=== PATIENT | female | born 1955 | race Caucasian/White ===

== ENCOUNTER 2017-01-30 01:35 | Inpatient (IN) | payer MEDICAID, MEDICARE, OTHER ==
[~2017-01-30] VITALS: Ht 170.2 cm; Wt 77.1 kg
[~2017-01-30 01:35] MED LIST: BENZ0.5T3 PO; FERR-58 PO; FLUO20CA36 PO; GABA-534 PO; HALO5TAB8 PO; NIFE30TA89 PO
--- NOTE | 2017-01-30 01:40 | NUR ---
PT BIB [facility] FOR GD AND DANGER TO SELF. PT IS ON A HOLD. PT WAS TAKEN TO ROOM #4. URINE SAMPLE OBTAINED AND SENT TO LAB.
[2017-01-30] MEDS ORDERED: OLANZAPINE 5 MG TABLET ONE (01:56)
--- NOTE | 2017-01-30 01:58 | NUR ---
MOTOR PATROL OPERATOR IS AT THE BEDSIDE FOR DRAW.
[2017-01-30] MEDS ORDERED: OLANZAPINE 5 MG TABLET PO ONE (02:00)
[2017-01-30 02:23] LABS: CANNABINOID, URINE NEGATIVE (NEGATIVE); PHENCYCLIDINE SCREEN,URINE NEGATIVE (NEGATIVE)
[2017-01-30 02:30] VITALS: BP 143/90
[2017-01-30 02:32] LABS: APPEARANCE,URINE CLEAR (CLEAR); BILIRUBIN,URINE 1+ (NEGATIVE); BLOOD, URINE NEGATIVE Ery/uL (NEGATIVE); COLOR,URINE YELLOW (YELLOW); KETONES,URINE TRACE (NEGATIVE); LEUKOCYTE ESTERASE ,URINE NEGATIVE (NEGATIVE); NITRITE, URINE NEGATIVE (NEGATIVE); PROTEIN,URINE 1+ mg/dl (NEGATIVE); UGLUCOSE NEGATIVE (NEGATIVE)
[2017-01-30 02:33] LABS: BASOPHILS % (AUTO) 0.6 % (0.0-2.0); EOSINOPHILS # (AUTO) 0.1 /CMM (0.0-0.7); EOSINOPHILS % (AUTO) 1.8 % (0.0-6.0); HEMATOCRIT 35 % (33-45); HEMOGLOBIN 11.4 g/dL (11.5-14.8); LYMPHOCYTES % (AUTO) 33.1 % (20.0-44.0); MEAN CORPUSCULAR HEMOGLOBIN 29 PG (26.0-33.0); MEAN CORPUSCULAR HGB CONC 33 g/dl (31.0-36.0); MEAN CORPUSCULAR VOLUME 89 fL (82-100); MONOCYTES # (AUTO) 0.6 /CMM (0.1-1.30); MONOCYTES % (AUTO) 10.2 % (2.0-12.0); NEUTROPHILS # (AUTO) 3.4 /CMM (1.8-8.9); NEUTROPHILS % (AUTO) 54.3 % (43.0-81.0); PLATELET COUNT (AUTO) 217 /CMM (150-450); RDW COEFFICIENT OF VARIATION 13.8 (11.5-15.0); RED BLOOD CELL COUNT(AUTO) 3.93 MIL/uL (4.0-5.2); WHITE BLOOD COUNT (AUTO) 6.2 K/uL (4.3-11.0)
[2017-01-30 02:41] LABS: ADD URINE CULTURE NO; BACTERIA,URINE Few /HPF (None Seen); RBC,URINE 0-2 /HPF (0-2); WBC,URINE 0-2 /HPF (0-3)
[2017-01-30 02:42] LABS: SQUAMOUS EPITHELIAL CELL,UR 0-2 /HPF (None Seen)
[2017-01-30 02:43] LABS: CALCIUM, SERUM 8.9 mg/dL (8.5-10.1); CARBON DIOXIDE 30 mmol/L (21-32); CHLORIDE 104 mmol/L (98-107); CREATININE 1.2 mg/dL (0.6-1.3); GFR 46 mL/min (>60); GLUCOSE 96 mg/dL (74-106); SODIUM SERUM 143 mmol/L (136-145); UREA NITROGEN, BLOOD 28 mg/dL (7-18)
[2017-01-30 02:48] LABS: ALANINE AMINOTRANSFERASE 18 U/L (12-78); ALBUMIN 3.7 g/dL (3.4-5.0); ALCOHOL, BLOOD < 3 mg/dL (0-0); ALKALINE PHOSPHATASE 86 U/L (46-116); ASPARTATE AMINOTRANSFERASE 18 U/L (15-37); BILIRUBIN,DIRECT 0.1 mg/dL (0.0-0.2); BILIRUBIN,TOTAL 0.3 mg/dL (0.2-1.0); TOTAL PROTEIN, SERUM 6.8 g/dL (6.4-8.2)
[2017-01-30 02:49] LABS: ACETAMINOPHEN 0 ug/ml (10-30); SALICYLATE 2.3 mg/dL (2.8-20.0); VALPROIC ACID 12 ug/mL (50-100)
[2017-01-30 03:15] VITALS: BP 143/90
--- NOTE | 2017-01-30 03:15 | NUR ---
[facility]PS NAILHEAD SETTER NOTES ADMITTED THIS 61 YEAR OLD FEMALE ON 5150 HOLD FOR DANGER TO SELF AND GRAVE DISABILITY. PER HOLD, PATIENT IS NON COMPLIANT, NOT SLEEPING AND EATING REGULARLY AND IS HEARING VOICES. UPON FACE TO FACE PATIENT IS ALERT AND ORIENTED X 4. ADMITS TO HEARING VOICES TELLING HIM TO GO LEAVE. VITAL SIGNS CHECKED AND RECORDED. AFEBRILE. ASSESSMENT OF BODY SYSTEMS COMPLETED. SKIN/ BODY CHECK DONE. SKIN IS CLEAR. PATIENT IS ADMITTED UNDER THE CARE OF DR. GARRIDO FOR PSYCH AND DR. JUAN JOSE LUNA FOR MEDICAL. PATIENT IS COOPERATIVE AND DISORGANIZED. DENIES SUICIDAL AND HOMICIDAL IDEATIONS. FOR MED RECON. WILL ENDORSE TO DAY SHIFT RN.
[2017-01-30] MEDS ORDERED: MAGNESIUM HYDROXIDE 30 ML UDC PO PRN (04:30)
[2017-01-30] MEDS ORDERED: MAG HYDROX/AL HYDROX/SIMETH 30 ML UDC PO PRN (04:30)
[2017-01-30 05:27] LABS: CHOLESTEROL 247 mg/dL (<200); HDL CHOLESTEROL 60 mg/dL (40-60); LDL 158 mg/dL (0-99); TRIGLYCERIDES 67 mg/dL (30-150)
[2017-01-30 08:00] VITALS: BP 144/71
[2017-01-30] MEDS: ACETAMINOPHEN 325 MG TABLET PO PRN ×3 (08:46→19:40)
[2017-01-30] MEDS ORDERED: CHLO10TA5 PO (10:18)
[2017-01-30] MEDS ORDERED: AMLO5TAB4 PO (10:18)
[2017-01-30] MEDS ORDERED: ATOR10TA PO (10:18)
[2017-01-30] MEDS ORDERED: DIVA250T PO (10:18)
[2017-01-30] MEDS ORDERED: LEVO75TA PO (10:18)
[2017-01-30] MEDS ORDERED: ALPR2TAB2 PO ×2 (10:18)
--- NOTE | 2017-01-30 10:20 | NUR ---
RECEIVED PT. ASLEEP IN BED, BREATHING IS EVEN AND UNLABORED. NO SIGN OF DISTRESS AND NO AGITATION NOTED. PT. TOLD THE TAX COMPLIANCE OFFICER WHAT ACTIVE MEDS SHE IS TAKING AT HOME AND HOME MEDS UPDATED.
[2017-01-30] MEDS ORDERED: chlorproMAZINE HCL 25 MG TABLET PO SCH (13:30)
[2017-01-30] MEDS: FLUOXETINE HCL 20 MG CAPSULE PO SCH (14:26)
[2017-01-30] MEDS: DIVALPROEX SODIUM 250 MG TABLET.DR PO SCH ×2 (14:26→16:45)
[2017-01-30 16:00] VITALS: BP 136/84
[2017-01-30 20:18] VITALS: BP 147/87
[2017-01-30] MEDS: OLANZAPINE 5 MG/TAB.RAPDIS PO SCH (21:33)
[2017-01-30] MEDS: TEMAZEPAM 7.5 MG CAPSULE PO PRN (21:51)
[2017-01-30] MEDS: LORAZEPAM 0.5 MG TABLET PO PRN (23:37)
[2017-01-31 07:07] LABS: BASOPHILS % (AUTO) 0.8 % (0.0-2.0); EOSINOPHILS # (AUTO) 0.3 /CMM (0.0-0.7); EOSINOPHILS % (AUTO) 4.8 % (0.0-6.0); HEMATOCRIT 36 % (33-45); HEMOGLOBIN 11.8 g/dL (11.5-14.8); LYMPHOCYTES # (AUTO) 2.7 /CMM (0.8-4.8); LYMPHOCYTES % (AUTO) 49.6 % (20.0-44.0); MEAN CORPUSCULAR HEMOGLOBIN 30 PG (26.0-33.0); MEAN CORPUSCULAR HGB CONC 33 g/dl (31.0-36.0); MEAN CORPUSCULAR VOLUME 90 fL (82-100); MONOCYTES # (AUTO) 0.4 /CMM (0.1-1.30); MONOCYTES % (AUTO) 8.1 % (2.0-12.0); NEUTROPHILS % (AUTO) 36.7 % (43.0-81.0); PLATELET COUNT (AUTO) 145 /CMM (150-450); RDW COEFFICIENT OF VARIATION 14.1 (11.5-15.0); RED BLOOD CELL COUNT(AUTO) 3.98 MIL/uL (4.0-5.2); WHITE BLOOD COUNT (AUTO) 5.4 K/uL (4.3-11.0)
[2017-01-31 08:00] VITALS: BP 130/79
[2017-01-31] MEDS: DIVALPROEX SODIUM 250 MG TABLET.DR PO SCH ×3 (08:03→17:27)
[2017-01-31] MEDS: AMLODIPINE BESYLATE 5 MG TABLET PO SCH (08:03)
[2017-01-31] MEDS: LEVOTHYROXINE SODIUM 75 MCG TABLET PO SCH (08:03)
[2017-01-31] MEDS: ATORVASTATIN 10 MG TABLET PO SCH (08:03)
[2017-01-31] MEDS: FLUOXETINE HCL 20 MG CAPSULE PO SCH (08:03)
[2017-01-31] MEDS: OLANZAPINE 5 MG/TAB.RAPDIS PO SCH ×2 (08:03→21:19)
[2017-01-31 08:19] LABS: ALBUMIN 3.1 g/dL (3.4-5.0); BILIRUBIN,TOTAL 0.3 mg/dL (0.2-1.0); CALCIUM, SERUM 8.2 mg/dL (8.5-10.1); TOTAL PROTEIN, SERUM 6.1 g/dL (6.4-8.2)
--- NOTE | 2017-01-31 09:08 | NUR ---
[id number]: NOTIFIED VIDEO TAPE TRANSFERRER ADRIAN JONES FOR LAB VALUES OF TODAY: NA= 146, K= 3.0, HUPEJLCZ=130, CALCIUM= 8.2, TOTAL PROTEIN= 6.1, ALBUMIN= 3.1, RBC= 3.98, PLT COUNT= 145, NEUT%= 36.7%. PENDING RETURN PHONE CALL
[2017-01-31] MEDS ORDERED: POTASSIUM CHLORIDE 20 MEQ TAB.PRT.SR PO ONE (10:00)
--- NOTE | 2017-01-31 10:19 | NUR ---
[id number]: RUSSELL JOENS ORDERED K-DUR 60 MEQ PO 1X.
[2017-01-31 16:00] VITALS: BP 110/76
--- NOTE | 2017-01-31 19:30 | NUR ---
GPS RN NOTE, RECEIVED PATIENT AWAKE AND IN BED, NO S/S OR COMPLAINTS OF PAIN AT THIS TIME. PATIENT IS DISPLAYING NO S/S OF APPARENT DISTRESS AT THIS TIME. PATIENT BREATHING IS UNLABORED WITH EQUAL RISE AND FALL OF THE CHEST. PATIENT IS ALERT AND ORIENTED X 2 ON ROOM AIR WITH A SPO2 OF 95%. PATIENT IS MED COMPLIANT, CALM, COOPERATIVE, AND NEEDS REORIENTATION. PATIENT DENIES SUICIDE IDEATIONS AND HOMICIDAL IDEATIONS AT THIS TIME. PATIENT ASSISTED WITH TURNING AND REPOSITIONING Q2HR AND PRN FOR COMFORT AND CIRCULATION. PATIENT HAS NO NEEDS AT THIS TIME. PATIENT EDUCATED ON THE USE OF THE CALL GONZALES. PATIENT BED SIDE RAILS ARE UP X2 FOR SAFETY, BED IS LOCKED AND LOW WILL CONTINUE TO MONITOR AND MAINTAIN SAFETY.
[2017-01-31 20:00] VITALS: BP 116/65
[2017-01-31] MEDS: TEMAZEPAM 7.5 MG CAPSULE PO PRN (21:20)
--- NOTE | 2017-01-31 21:20 | NUR ---
GPS RN NOTE, PATIENT HAS A COMPLAINT OF NOT BEING ABLE TO SLEEP AND [place] LIKE A SLEEPING AID AT THIS TIME. PATIENT VITAL SIGNS ARE STABLE. GAVE RESTORIL 7.5MG PO HS ORDERED. WILL REASSESS FOR INSOMNIA AND I WILL CONTINUE TO MONITOR THIS PATIENT.
[2017-01-31] MEDS: ACETAMINOPHEN 325 MG TABLET PO PRN (22:12)
--- NOTE | 2017-01-31 22:12 | NUR ---
GPS RN NOTE, PATIENT HAS A COMPLAINT OF RIGHT SHOULDER PAIN AT 5 OUT 10 ON THE PAIN SCALE AND WOULD LIKE MEDICATION AT THIS TIME. PATIENT VITAL SIGNS ARE STABLE. GAVE TYLENOL 650MG PO Q6HR PRN ORDERED. WILL REASSESS PAIN AND I WILL CONTINUE TO MONITOR THIS PATIENT.
--- NOTE | 2017-01-31 23:29 | NUR ---
GPS RN NOTE, PATIENT HAS A COMPLAINT OF CHRONIC RIGHT SHOULDER PAIN AT 7 OUT 10 ON THE PAIN SCALE. PAGED [facility] AND INFORMED GABINO SWAIN OF MY FINDINGS. GABINO SWAIN ORDER NORCO 5-325 1 TAB PO Q6HR PRN. ALL ORDERS NOTED AND CARRIED OUT WILL CONTINUE TO MONITOR THIS PATIENT.
[2017-02-01 07:40] LABS: BASOPHILS % (AUTO) 0.6 % (0.0-2.0); EOSINOPHILS # (AUTO) 0.3 /CMM (0.0-0.7); EOSINOPHILS % (AUTO) 4.3 % (0.0-6.0); HEMATOCRIT 35 % (33-45); HEMOGLOBIN 11.5 g/dL (11.5-14.8); LYMPHOCYTES # (AUTO) 2.6 /CMM (0.8-4.8); LYMPHOCYTES % (AUTO) 44.6 % (20.0-44.0); MEAN CORPUSCULAR HEMOGLOBIN 30 PG (26.0-33.0); MEAN CORPUSCULAR HGB CONC 33 g/dl (31.0-36.0); MEAN CORPUSCULAR VOLUME 89 fL (82-100); MONOCYTES # (AUTO) 0.4 /CMM (0.1-1.30); MONOCYTES % (AUTO) 6.4 % (2.0-12.0); NEUTROPHILS # (AUTO) 2.6 /CMM (1.8-8.9); NEUTROPHILS % (AUTO) 44.1 % (43.0-81.0); PLATELET COUNT (AUTO) 201 /CMM (150-450); RDW COEFFICIENT OF VARIATION 14.3 (11.5-15.0); RED BLOOD CELL COUNT(AUTO) 3.89 MIL/uL (4.0-5.2); WHITE BLOOD COUNT (AUTO) 5.9 K/uL (4.3-11.0)
[2017-02-01 07:58] LABS: CALCIUM, SERUM 8.1 mg/dL (8.5-10.1); POTASSIUM 3.9 mmol/L (3.5-5.1)
[2017-02-01 08:00] VITALS: BP 119/74
[2017-02-01] MEDS: DIVALPROEX SODIUM 250 MG TABLET.DR PO SCH ×3 (08:18→16:29)
[2017-02-01] MEDS: FLUOXETINE HCL 20 MG CAPSULE PO SCH (08:18)
[2017-02-01] MEDS: LEVOTHYROXINE SODIUM 75 MCG TABLET PO SCH (08:18)
[2017-02-01] MEDS: OLANZAPINE 5 MG/TAB.RAPDIS PO SCH ×2 (08:18→21:27)
[2017-02-01] MEDS: ATORVASTATIN 10 MG TABLET PO SCH (08:18)
[2017-02-01] MEDS: AMLODIPINE BESYLATE 5 MG TABLET PO SCH (08:19)
--- NOTE | 2017-02-01 10:53 | NUR ---
UR Update: face worker provided Farhan Daley ([phone]) pillowcase cutter for [facility] verbal updated clinical. face worker will follow-up. AUT# [id number]
--- NOTE | 2017-02-01 11:58 | NUR ---
Patient lives with a roommate at [address] [place] [address]. ([phone]). Patient wants to return home upon discharge. workers' compensation claims supervisor attempted to contact patients roommate Kimberly Campbell / . However, she was unavailable, social media content manager left her a voicemail with her contact information. workers' compensation claims supervisor will follow-up with MD, family and patient regarding appropriate discharge plan and will help form a safe and proper discharge. workers' compensation claims supervisor will provide patient with substance abuse and smoking cessation referrals upon discharge.
--- NOTE | 2017-02-01 15:35 | NUR ---
disc pad knockout worker spoke with patients roommate Kimberly Carpentera ([phone]) who stated that patient can return home when she is ready for discharge.
[2017-02-01 16:09] VITALS: BP 103/63
[2017-02-01] MEDS: HYDROCODONE/APAP 5/325MG 1 EACH TABLET PO PRN (17:40)
--- NOTE | 2017-02-01 17:40 | NUR ---
[id number]: GAVE NORCO 5/325 MG PO DUE TO GENERALIZED PAIN 05/12 UPON PT REQUEST AND WILL CONTINUE TO MONITOR FOR EFFECTIVENESS OF MEDICATION
[2017-02-01] MEDS: TEMAZEPAM 7.5 MG CAPSULE PO PRN (21:46)
--- NOTE | 2017-02-01 21:47 | NUR ---
GPS/RN NOTE: PATIENT UNABLE TO SLEEP, REQUESTED FOR SLEEPING PILL, TEMAZEPAM 7.5 MG CAP 1 PO GIVEN.
[2017-02-01 22:01] VITALS: BP 135/79
[2017-02-02] MEDS: HYDROCODONE/APAP 5/325MG 1 EACH TABLET PO PRN ×2 (02:10→12:50)
--- NOTE | 2017-02-02 02:11 | NUR ---
GPS/RN NOTE: C/O ACHY PAIN ON THE RIGHT SHOULDER, 6/10 ON PAIN SCALE, NORCO 5/325 MG TAB 1 PO GIVEN.
[2017-02-02 08:06] VITALS: BP 145/82
[2017-02-02] MEDS: DIVALPROEX SODIUM 250 MG TABLET.DR PO SCH ×3 (08:26→17:54)
[2017-02-02] MEDS: FLUOXETINE HCL 20 MG CAPSULE PO SCH (08:26)
[2017-02-02] MEDS: ATORVASTATIN 10 MG TABLET PO SCH (08:26)
[2017-02-02] MEDS: OLANZAPINE 5 MG/TAB.RAPDIS PO SCH ×2 (08:26→21:24)
[2017-02-02] MEDS: AMLODIPINE BESYLATE 5 MG TABLET PO SCH (08:26)
[2017-02-02] MEDS: LEVOTHYROXINE SODIUM 75 MCG TABLET PO SCH (08:27)
[2017-02-02] MEDS: LORAZEPAM 0.5 MG TABLET PO PRN (08:58)
--- NOTE | 2017-02-02 08:58 | NUR ---
ADMINISTER ATIVAN 0.5 MG PO PRN FOR ANXIETY, V/S TAKEN NZ=656/82, P-63, CONTINUED MONITORING.
--- NOTE | 2017-02-02 09:42 | NUR ---
I have reviewed the psychosocial assessment and I concur with the information provided. No changes are necessary. Ashley Aguilar, BREAK OFF WORKER [id number] Addendum: 02/02/17 at 0943 by ASHLEY CANTU Amended: Links added.
[2017-02-02] MEDS ORDERED: MUPIROCIN OINT 2% 22 GM TUBE SCH (10:00)
--- NOTE | 2017-02-02 10:40 | NUR ---
UR Update: day worker provided Farhan Daley ([phone]) renal case manager for [facility] verbal updated clinical. day worker will follow-up. AUT# [id number]
--- NOTE | 2017-02-02 12:50 | NUR ---
administered narco 5/325 mg po prn for chronic generalized pain 05/12, v/s take bp-123/71, p-73, continued monitoring.
--- NOTE | 2017-02-02 15:10 | NUR ---
UR update: barn worker spoke to Farhan Daley ([phone]) housing case manager for [facility] who confirmed approval through January, with the next review due on Saturday February 04, 2017. barn worker will follow-up. AUT# [id number]
[2017-02-02 16:00] VITALS: BP 136/75
[2017-02-02 20:23] VITALS: BP 143/97
[2017-02-02] MEDS: TEMAZEPAM 7.5 MG CAPSULE PO PRN (21:24)
--- NOTE | 2017-02-02 21:26 | NUR ---
GPS/RN NOTE: TEMAZEPAM 7.5 MG TAB 1 PO GIVEN
[2017-02-03 07:20] LABS: BASOPHILS % (AUTO) 0.9 % (0.0-2.0); EOSINOPHILS # (AUTO) 0.2 /CMM (0.0-0.7); EOSINOPHILS % (AUTO) 5.2 % (0.0-6.0); HEMATOCRIT 37 % (33-45); HEMOGLOBIN 12.4 g/dL (11.5-14.8); LYMPHOCYTES # (AUTO) 2.3 /CMM (0.8-4.8); LYMPHOCYTES % (AUTO) 49.6 % (20.0-44.0); MEAN CORPUSCULAR HEMOGLOBIN 30 PG (26.0-33.0); MEAN CORPUSCULAR HGB CONC 34 g/dl (31.0-36.0); MEAN CORPUSCULAR VOLUME 89 fL (82-100); MONOCYTES # (AUTO) 0.4 /CMM (0.1-1.30); MONOCYTES % (AUTO) 8.4 % (2.0-12.0); NEUTROPHILS # (AUTO) 1.7 /CMM (1.8-8.9); NEUTROPHILS % (AUTO) 35.9 % (43.0-81.0); PLATELET COUNT (AUTO) 198 /CMM (150-450); RDW COEFFICIENT OF VARIATION 14.2 (11.5-15.0); RED BLOOD CELL COUNT(AUTO) 4.13 MIL/uL (4.0-5.2); WHITE BLOOD COUNT (AUTO) 4.7 K/uL (4.3-11.0)
[2017-02-03 07:27] LABS: CALCIUM, SERUM 8.7 mg/dL (8.5-10.1); CREATININE 1.1 mg/dL (0.6-1.3); POTASSIUM 4.4 mmol/L (3.5-5.1)
[2017-02-03 07:43] LABS: THYROID STIMULATING HORMONE 2.138 uIU/mL (0.358-3.74)
[2017-02-03 08:00] VITALS: BP_SYST 119; BP_SYST 132; BP_DIAS 66; BP_DIAS 74
[2017-02-03] MEDS: DIVALPROEX SODIUM 250 MG TABLET.DR PO SCH ×3 (08:52→16:59)
[2017-02-03] MEDS: OLANZAPINE 5 MG/TAB.RAPDIS PO SCH ×2 (08:52→21:04)
[2017-02-03] MEDS: ATORVASTATIN 10 MG TABLET PO SCH (08:52)
[2017-02-03] MEDS: AMLODIPINE BESYLATE 5 MG TABLET PO SCH (08:53)
[2017-02-03] MEDS: FLUOXETINE HCL 20 MG CAPSULE PO SCH (08:53)
[2017-02-03] MEDS: LEVOTHYROXINE SODIUM 75 MCG TABLET PO SCH (08:53)
[2017-02-03 16:00] VITALS: BP 138/70
[2017-02-03] MEDS: HYDROCODONE/APAP 5/325MG 1 EACH TABLET PO PRN ×2 (17:18→23:32)
[2017-02-03 20:00] VITALS: BP 118/67
--- NOTE | 2017-02-03 21:16 | NUR ---
GPS RN NOTES PATIENT TOOK OLANZAPINE 7.5 MG. SUPPOSED TO WASTE 2.5 MG IN PIXIS BUT ACCIDENTALLY WENT TOO FAST AND WASTED 10MG INSTEAD.
[2017-02-03] MEDS: TEMAZEPAM 7.5 MG CAPSULE PO PRN (22:08)
--- NOTE | 2017-02-03 22:08 | NUR ---
GPS RN NOTES PATIENT UNABLE TO SLEEP. PRN RESTORIL 7.5 MG GIVEN PO AT 2208 PER PATIENT REQUEST FOR INSOMNIA.
--- NOTE | 2017-02-03 23:32 | NUR ---
GPS RN NOTES PATIENT COMPLAINING OF RIGHT SHOULDER PAIN AT 10/10 PAIN SCALE. PRN NORCO GIVEN PO AT 2332 PER PATIENT REQUEST FOR PAIN.
[2017-02-04] MEDS: LORAZEPAM 0.5 MG TABLET PO PRN (00:22)
--- NOTE | 2017-02-04 00:23 | NUR ---
GPS RN NOTES PATIENT STATES THAT SHE FEELS ANXIOUS. KEEPS ON ASKING FOR CRACKERS AND MILK. STILL UNABLE TO SLEEP DESPITE TAKING RESTORIL EARLIER. ATIVAN 0.5MG GIVEN PO AT 0022 PER PATIENT REQUEST.
[2017-02-04 08:00] VITALS: BP 109/51
[2017-02-04] MEDS: DIVALPROEX SODIUM 250 MG TABLET.DR PO SCH ×3 (08:15→16:31)
[2017-02-04] MEDS: OLANZAPINE 5 MG/TAB.RAPDIS PO SCH (08:15)
[2017-02-04] MEDS: FLUOXETINE HCL 20 MG CAPSULE PO SCH (08:15)
[2017-02-04] MEDS: LEVOTHYROXINE SODIUM 75 MCG TABLET PO SCH (08:15)
[2017-02-04] MEDS: ATORVASTATIN 10 MG TABLET PO SCH (08:15)
[2017-02-04] MEDS: AMLODIPINE BESYLATE 5 MG TABLET PO SCH (08:16)
--- NOTE | 2017-02-04 08:30 | NUR ---
RN-CO: DR Lamas, stamp redemption clerk for Dr. Patrick , ordered to discontinue hold and discharge patient. Kimberly Campbell , friend notified. Per Kimberly she will garbage pick up man the patient at 8:00 PM. Patient made aware.
--- NOTE | 2017-02-04 14:00 | NUR ---
RN-CO: Dr. Galvin seen and examined the patient and wrote a RX for the patient. Patient is aware of her discharge. She remain calm and cooperative to care. Denied suicidal and homicidal ideation as well as auditory and visual hallucination.
[2017-02-04 16:00] VITALS: BP 137/76
--- NOTE | 2017-02-04 16:33 | NUR ---
Patient will be discharged back home [address] [place] [address]. ([phone]) Patient's roommate/ was informed and will pick her up via private vehicle at 8:30pm. Patient and patient's roommate/ are agreeable with the discharge plan. At this time patient is calm and cooperative and denies suicidal and homicidal ideations. Patient provided patient with [facility] referral for follow-up appointment. telephone worker also provided patient with a referral to the [facility] department of mental health [address] [facility] [address]. Pt. will meet with psychiatrist Dr. Mattson to discuss medication overuse. Facilitated info to IDT team who are in agreement with discharge arrangement. The multidisciplinary exitcare form was done, printed, signed, and given to the patient.
--- NOTE | 2017-02-04 20:15 | NUR ---
GPS/RN-PATIENT DISCHARGED TO HOME IN STABLE CONDITION ACCOMPANIED BY SIGNIFICANT OTHER.NO VERBALIZATION OF SI/HI.HEALTH TEACHINGS GIVEN TO PATIENT AND PARTNER.ALL PERSONAL BELONGINS TAKEN HOME BY PATIENT.
== END 2017-02-04 20:15 | disposition home or self-care (01) | DRG 885 ==
LOC: ER 01:38 → GPS 02:52
PROVIDERS: ADMIT Psychiatry & Neurology Psychiatry; ATTEND Nurse Practitioner Acute Care
DX: F31.64 Bipolar disorder, current episode mixed, severe, with psychotic features (principal); E87.0 Hyperosmolality and hypernatremia; Z73.6 Limitation of activities due to disability; I10 Essential (primary) hypertension; D50.9 Iron deficiency anemia, unspecified; E87.6 Hypokalemia; E78.5 Hyperlipidemia, unspecified; E03.9 Hypothyroidism, unspecified; Z79.899 Other long term (current) drug therapy; Z91.14 Patient's other noncompliance with medication regimen
CPT/HCPCS: 36415; 80048-TC; 80053-TC; 80061-TC; 80076-TC; 80164-TC; 80305; 81000-TC; 84443-TC; 85025-TC; 87081-TC; A4606; G0480; G6039-TC; Z7610

== ENCOUNTER 2019-11-18 15:23 | Inpatient (IN) | payer MEDICARE, OTHER ==
[~2019-11-18] VITALS: Ht 170.2 cm; Wt 71.2 kg
[~2019-11-18 15:23] MED LIST changes: +ALPR2TAB2 PO; +AMLO5TAB4 PO; +ATOR10TA PO; -BENZ0.5T3 PO; +CHLO10TA5 PO; +DIVA250T PO; -FERR-58 PO; -GABA-534 PO; -HALO5TAB8 PO; +LEVO75TA PO; -NIFE30TA89 PO
[2019-11-18 16:14] LABS: BASOPHILS # (AUTO) 0.1 /CMM (0.0-0.2); BASOPHILS % (AUTO) 0.5 % (0.0-2.0); EOSINOPHILS % (AUTO) 0.5 % (0.0-6.0); HEMATOCRIT 38 % (33-45); HEMOGLOBIN 12.6 g/dL (11.5-14.8); LYMPHOCYTES # (AUTO) 1.9 /CMM (0.8-4.8); MEAN CORPUSCULAR HGB CONC 33 g/dl (31.0-36.0); MEAN CORPUSCULAR VOLUME 88 fL (82-100); MONOCYTES # (AUTO) 0.8 /CMM (0.1-1.30); MONOCYTES % (AUTO) 7.4 % (2.0-12.0); NEUTROPHILS # (AUTO) 8.5 /CMM (1.8-8.9); NEUTROPHILS % (AUTO) 74.6 % (43.0-81.0); PLATELET COUNT (AUTO) 440 /CMM (150-450); RED BLOOD CELL COUNT(AUTO) 4.29 MIL/uL (4.0-5.2); WHITE BLOOD COUNT (AUTO) 11.3 K/uL (4.3-11.0)
[2019-11-18] MEDS ORDERED: VENL75CA62 PO (16:20)
[2019-11-18] MEDS ORDERED: DULO60CA64 PO (16:20)
[2019-11-18] MEDS ORDERED: LISI2.5T2 PO (16:20)
[2019-11-18] MEDS ORDERED: ZOLP10TA2 PO (16:20)
[2019-11-18 16:22] LABS: CALCIUM, SERUM 10.4 mg/dL (8.5-10.1); CARBON DIOXIDE 27 mmol/L (21-32); CHLORIDE 92 mmol/L (98-107); CREATININE 1.2 mg/dL (0.6-1.3); GLUCOSE 128 mg/dL (74-106); POTASSIUM 3.3 mmol/L (3.5-5.1); SODIUM SERUM 131 mmol/L (136-145); UREA NITROGEN, BLOOD 21 mg/dL (7-18)
[2019-11-18 16:27] LABS: ACETAMINOPHEN 0 ug/ml (10-30); ALANINE AMINOTRANSFERASE 28 U/L (12-78); ALBUMIN 3.9 g/dL (3.4-5.0); ALKALINE PHOSPHATASE 124 U/L (46-116); ASPARTATE AMINOTRANSFERASE 35 U/L (15-37); BILIRUBIN,DIRECT 0.1 mg/dL (0.0-0.2); BILIRUBIN,TOTAL 0.4 mg/dL (0.2-1.0); SALICYLATE 1.4 mg/dL (2.8-20.0); TOTAL PROTEIN, SERUM 7.9 g/dL (6.4-8.2)
[2019-11-18 16:28] LABS: ALCOHOL, BLOOD < 3 mg/dL (0-0)
--- NOTE | 2019-11-18 16:46 | NUR ---
AR ETA 1 HR
--- NOTE | 2019-11-18 16:51 | NUR ---
Patient awake alert no agitation @ this time ,her partner @ bedside made aware plan of care continue to monitor
--- NOTE | 2019-11-18 17:38 | NUR ---
Patient awake able to ambulated to rest room urine obtined an send to lab
[2019-11-18 17:54] LABS: APPEARANCE,URINE Clear (CLEAR); BILIRUBIN,URINE Negative (NEGATIVE); BLOOD, URINE Trace-intact Ery/uL (NEGATIVE); COLOR,URINE Yellow (YELLOW); KETONES,URINE Negative (NEGATIVE); LEUKOCYTE ESTERASE ,URINE Negative (NEGATIVE); NITRITE, URINE Negative (NEGATIVE); PH,URINE 5.5 (5.0-8.0); PROTEIN,URINE 100 mg/dl (NEGATIVE); UGLUCOSE Negative (NEGATIVE); UROBILINOGEN,URINE 0.2 EU/dL (0.2)
[2019-11-18 18:41] LABS: BACTERIA,URINE Rare /HPF (None Seen); HYALINE CASTS, URINE Rare /LPF (None Seen); RBC,URINE 0-2 /HPF (0-2); SQUAMOUS EPITHELIAL CELL,UR 0-2 /HPF (None Seen); WBC,URINE 0-2 /HPF (0-3)
--- NOTE | 2019-11-18 19:17 | NUR ---
Transfer care report to Abisai arellano awaiting for Restaurant District Manager
--- NOTE | 2019-11-18 19:27 | NUR ---
AR MENTAL HEALTH MILK OF LIME SLAKER AT BEDSIDE
--- NOTE | 2019-11-18 19:28 | NUR ---
PT CAME TO ER BED 13 C/O SUICIDAL IDEATION. ALTHOUGH SHE HAS NO PLANS, PT STATES SHE HEARS VOICES TELLING HER "YOU ARE EMPTY". PT STATES, "i AM GOING THROUGH STRUGGLE.". AAOX4. NO SOB. BREATHING EVENLY AND UNLABORED ON ROOM AIR AT 100% O2. CONNECTED TO MONITOR. SITTER AT BEDSIDE.
--- NOTE | 2019-11-18 19:29 | NUR ---
AWAITING PSYCHIATRIC EVALUATION.
--- NOTE | 2019-11-18 19:53 | NUR ---
PER NURSING SUP, NO FEMALE BEDS CURRENTLY AVAILABLE, WILL FOLLOW UP ONCE THERE ARE DISCHARGES.
--- NOTE | 2019-11-18 20:27 | NUR ---
PT RESTING COMFORTABY IN BED. VITAL SIGNS STABLE. SITTER AT BEDSIDE. WILL CONTINUE TO MONITOR
--- NOTE | 2019-11-19 02:22 | NUR ---
PATIENT IS SLEEPING. EASILY AROUSED THROUGH VERBAL AND TACTILE STIMULI. BREATHING EVENLY AND UNLABORED ON ROOM AIR. VSS. CONNECTED TO MONITOR. SITTER AT BEDSIDE.
--- NOTE | 2019-11-19 03:21 | NUR ---
NOTED HYPERTENSION. DR. MORALEZ MADE AWARE. PT RESTING COMFORTABLY IN BED. DENIES CP, SOB, HEADACHE, NAUSEA, VOMITTING. SITTER AT BEDSIDE, WILL CONTINUE TO MONITOR
[2019-11-19] MEDS ORDERED: LISINOPRIL (5MG) 5 MG TABLET ONE (03:30)
--- NOTE | 2019-11-19 06:41 | NUR ---
PT RESTING COMFORTABLY IN BED. VITAL SIGNS STABLE. SITTER AT BEDSIDE. WILL CONTINUE TO MONITOR
--- NOTE | 2019-11-19 07:32 | NUR ---
PATIENT PROVIDED W BREAKFAST TRAY, PER PATIENT "NOT HUNGRY". FOOD TRAY PLACED AT BEDSIDE
--- NOTE | 2019-11-19 09:01 | NUR ---
NURSING SUP GAVE [facility] BED 218-A.
[2019-11-19] MEDS: LISINOPRIL (5MG) 5 MG TABLET PO SCH (10:00)
--- NOTE | 2019-11-19 10:01 | NUR ---
PATIENT TOLERATING FOOD WELL.
--- NOTE | 2019-11-19 11:02 | NUR ---
REPORT GIVEN TO ZARI OMER OF GPS. REQUESTED TO WAIT FOR 20-30 MIN THERE IS NO BED YET.
--- NOTE | 2019-11-19 12:00 | NUR ---
RN NOTE- ADMISSION/ PT ADMITTED TO [facility] ON 5150 DTS AFTER PRESENTING WITH SUICIDAL IDEATION WITHOUT A SPECIFIC PLAN. PT HAS HAD DECLINING HEALTH AND MOBILITY OVER LAST FEW MONTHS. PT QUIT ALL OF HER MEDICATIONS ACCORDING TO HER. SHE LIVES WITH A PARTNER AT PRESENT AND HER PARTNER IS VERY SUPPORTIVE. ON FACE TO FACE ADMISSION, PT VS - B/P- 144/100, P- 109, RR- 20, TEMP- 97.8, SATURATION 97%RA. SKIN INTACT, ADMITS TO SUICIDAL THOUGHTS AT PRESENT THOUGH THEY'VE DECREASED SINCE SHES BEEN IN HOSPITAL. PT STATED SHES HAD AUDITORY HALLUCINATIONS WITH VOICES TELLING HER "SHE'S NO GOOD" . CURRENTLY DENIES AH AT PRESENT. PT HAS HX OF HTN, BACK SURGERY FOR VERTEBRAE INJURY , ALSO PAST HX OF ETOH ABUSE AND COCAINE USE. PT CURRENTLY ADMITS TO SOBRIETY. PT RIGHTS HANDBOOK GIVEN, ORIENTATION TO UNIT, ENCOURAGED AND ASSISTED. NOTIFIED OF ADMISSION, ORDERS GIVEN AND COMPLIED WITH.
[2019-11-19] MEDS ORDERED: ZOLPIDEM TARTRATE 10 MG TABLET PO PRN (13:00)
[2019-11-19] MEDS ORDERED: BLOOD SUGAR DIAGNOSTIC 1 EACH STRIP IN ONE (13:00)
[2019-11-19] MEDS ORDERED: MAGNESIUM HYDROXIDE 30 ML UDC PO PRN (13:00)
[2019-11-19] MEDS ORDERED: MAG HYDROX/AL HYDROX/SIMETH 30 ML UDC PO PRN (13:00)
[2019-11-19 16:00] VITALS: BP 113/84
[2019-11-19] MEDS: LORAZEPAM 0.5 MG TABLET PO PRN (17:24)
--- NOTE | 2019-11-19 17:24 | NUR ---
RN NOTE-ANXIETY AND PAIN/ PT C/O ANXIETY AND RESTLESSNESS. PT ALSO C/O PAIN TO LEGS, BACK AND HIPS 03/12. ATIVAN 1MG GIVEN FOR ANXIETY AND MOTRIN 400 MG GIVEN FOR ARTHRITIC PAIN.
[2019-11-19] MEDS ORDERED: IBUPROFEN 400 MG TABLET PO PRN (17:30)
--- NOTE | 2019-11-19 19:57 | NUR ---
GPS RN OPENING NOTES: PATIENT RESTING IN HIS BED, EASILY AGITED ,DISHELVED ,PARANOID DENIES SI/HI/AVH AT THIS TIME,.ENCOURAGED FOR VERBALIZATION OF FEELINGS, SAFETY PRECAUTIONS IMPLEMENTED. INTERACT WITH ENGAGED, WILL CONTINUE TO MONITOR Q15MIN ROUNDS FOR SAFETY AND BEHAVIOR.
[2019-11-19 21:07] VITALS: BP 112/79
[2019-11-20] MEDS: LORAZEPAM 0.5 MG TABLET PO PRN ×3 (06:18→18:48)
--- NOTE | 2019-11-20 06:19 | NUR ---
GPS RN NOTES : PT.C/O AGITATION , RESTLESS ,ATIVAN 1 MG PO PRN GIVEN PER PT. REQUEST, WILL CONTINUE TO MONITOR.
--- NOTE | 2019-11-20 06:43 | NUR ---
GPS RN CLOSING NOTE: PATIENT IN BED ASLEEP,COMFORTABLY, NO ACUTE DISTRESS NOTED. DENIES PAIN OR DISCOMFORT. NO BEHAVIOR PROBLEMS NOTED ,DENIES SI/HI/AVH AT THIS TIME. SAFETY PRECAUTIONS IMPLEMENTED.ALL NEEDS ATTENDED AND ANTICIPATED, ENCOURGED FOR VERBALIZED ANY FEELING ,BED ALARM ON AND IN LOCKED POSITION. WILL CONTINUE TO MONITOR FOR PT'S SAFETY AND BEHAVIOR.
[2019-11-20 06:51] LABS: CHOLESTEROL 239 mg/dL (<200); HDL CHOLESTEROL 74 mg/dL (40-60); LDL 141 mg/dL (0-99); TRIGLYCERIDES 72 mg/dL (30-150)
[2019-11-20 06:59] LABS: ALBUMIN 3.2 g/dL (3.4-5.0); BILIRUBIN,TOTAL 0.4 mg/dL (0.2-1.0); CALCIUM, SERUM 9.4 mg/dL (8.5-10.1); CREATININE 1.1 mg/dL (0.6-1.3); POTASSIUM 3.4 mmol/L (3.5-5.1); TOTAL PROTEIN, SERUM 6.8 g/dL (6.4-8.2)
[2019-11-20] MEDS: LEVOTHYROXINE SODIUM 100 MCG TABLET PO SCH (07:28)
[2019-11-20 08:00] VITALS: BP 116/80
[2019-11-20] MEDS: LISINOPRIL (5MG) 5 MG TABLET PO SCH ×2 (08:18→08:19)
[2019-11-20] MEDS: ESCITALOPRAM OXALATE (10 MG) 10 MG TABLET PO SCH (10:07)
[2019-11-20] MEDS ORDERED: POTASSIUM CHLORIDE 20 MEQ TAB.PRT.SR PO SCH (11:00)
--- NOTE | 2019-11-20 12:22 | NUR ---
RN NOTE: PT C/O INCREASED ANXIETY AND REQUEST ATIVAN. ATIVAN 1MG PO PRN GIVEN
[2019-11-20] MEDS: ACETAMINOPHEN 325 MG TABLET PO PRN (14:31)
--- NOTE | 2019-11-20 14:31 | NUR ---
RN NOTE: PT C/O RIGHT KNEE PAIN. MEDICATED WITH TYLENOL 650 MG PO PRN.
--- NOTE | 2019-11-20 14:44 | NUR ---
Family Contact: SW called the pts partner, Kimberly ([phone]), and left a voicemail stating that the SW would like to discuss the pts treatment plan with her at her convenience.
[2019-11-20 16:00] VITALS: BP 115/79
--- NOTE | 2019-11-20 16:34 | NUR ---
Group Note: SW encouraged pt to attend group therapy on 11/20/19 at 2pm discussing aggressive behaviors and triggers. Pt stated that she does not relate and was feeling fatigued so she wanted to rest in her room.
--- NOTE | 2019-11-20 18:48 | NUR ---
RN NOTE: PT C/O ANXIETY. REQUESTED ATIVAN. MEDICATED WITH ATIVAN 1MG PO PRN
[2019-11-21 05:57] VITALS: BP 120/73
[2019-11-21] MEDS: LORAZEPAM 0.5 MG TABLET PO PRN ×2 (05:59→12:18)
--- NOTE | 2019-11-21 06:01 | NUR ---
GPS RN NOTES: PRN MED PT C/O OF FEELING ANXIOUS. PER PT REQUEST ATIVAN. PT STATED, "I FEEL ANXIOUS RIGHT NOW." CHECKED PTS VITALS WNL. OFFERED ATIVAN 1MG PO PRN ORDERED. PT AGREED AND TOLERATED MEDICATION WELL CONTINUE TO MONITOR.
[2019-11-21 06:31] LABS: CALCIUM, SERUM 8.8 mg/dL (8.5-10.1); CREATININE 1.4 mg/dL (0.6-1.3); POTASSIUM 4.1 mmol/L (3.5-5.1)
[2019-11-21 08:00] VITALS: BP 111/64
[2019-11-21] MEDS: LISINOPRIL (5MG) 5 MG TABLET PO SCH (08:35)
[2019-11-21] MEDS: ESCITALOPRAM OXALATE (10 MG) 10 MG TABLET PO SCH (08:35)
[2019-11-21] MEDS: ARIPIPRAZOLE 5 MG TABLET PO SCH (08:35)
[2019-11-21] MEDS: LEVOTHYROXINE SODIUM 100 MCG TABLET PO SCH (08:35)
--- NOTE | 2019-11-21 14:25 | NUR ---
Group Note: SW invited the patient to attend group therapy on 11/21/2019 1 pm to discuss "what changes they would like to see in their lives as a result of their stay in [facility]". The patient refused and stated, "I just want to sleep, can I come tomorrow". ALONDRA encouraged the pt. to attend and informed pt. that tomorrow's group would be regarding a different topic. Pt. declined.
[2019-11-21] MEDS: ACETAMINOPHEN 325 MG TABLET PO PRN ×2 (14:26→20:35)
--- NOTE | 2019-11-21 14:52 | NUR ---
Family Contact: ALONDRA called the pts partner, Kimberly ([phone]), and informed her that the pt will be discharged back to their home when she is stable and ready for discharge which will be in a couple of more days per the MD.
--- NOTE | 2019-11-21 14:52 | NUR ---
Initial Discharge Plan: Pt currently resides at her home located at [address] [place], [place] [address]; ([phone]). Per pt, she would like to return to her home when she is stable. SW will work with the pt and the MD regarding appropriate discharge planning. SW will form a safe and proper discharge.
[2019-11-21 16:00] VITALS: BP 100/62
--- NOTE | 2019-11-21 20:39 | NUR ---
GPS RN NOTES: C/O OF BACK PAIN PT C/O OF BACK PAIN. PER PT REQUEST TYLENOL. OFFERED TYLENOL 650 MG PO PRN ORDERED. PT AGREED AND TOLERATED MEDICATION WELL. CONTINUE TO MONITOR.
[2019-11-21 20:57] VITALS: BP 113/71
[2019-11-21 21:30] VITALS: BP 145/89
[2019-11-21] MEDS: TRAZODONE 50 MG TABLET PO PRN (21:36)
--- NOTE | 2019-11-21 21:37 | NUR ---
GPS RN NOTES: C/O UNABLE TO SLEEP PT C/O UNABLE TO SLEEP. PT STATED, " IM HAVING A HARD TIME SLEEPING." VITALS WNL. OFFERED TRAZODONE 50 MG PO PRN ORDERED. PT AGREED AND TOLERATED THE MEDICATION WELL. CONTINUE TO MONITOR.
[2019-11-22] MEDS: LORAZEPAM 0.5 MG TABLET PO PRN ×3 (06:49→22:24)
--- NOTE | 2019-11-22 06:52 | NUR ---
GPS RN NOTES: C/O OF FEELING ANXIOUS PT C/O FEELING ANXIOUS. PER PT, PT REQUEST ATIVAN. CHECK PT VITALS WNL. OFFERED ATIVAN 1MG PO PRN ORDERED. PT AGREED AND TOLERATED MEDICATION WELL. CONTINUE TO MONITOR.
[2019-11-22 08:00] VITALS: BP 126/76
[2019-11-22 08:03] LABS: THYROID STIMULATING HORMONE 2.788 uIU/mL (0.358-3.74)
[2019-11-22 08:05] LABS: ALBUMIN 2.9 g/dL (3.4-5.0); BILIRUBIN,TOTAL 0.3 mg/dL (0.2-1.0); CALCIUM, SERUM 8.9 mg/dL (8.5-10.1); CREATININE 1.1 mg/dL (0.6-1.3); MAGNESIUM 2.1 mg/dL (1.8-2.4); PHOSPHORUS 4.2 mg/dL (2.5-4.9); POTASSIUM 4.3 mmol/L (3.5-5.1); TOTAL PROTEIN, SERUM 6.3 g/dL (6.4-8.2)
[2019-11-22] MEDS: LEVOTHYROXINE SODIUM 100 MCG TABLET PO SCH (08:05)
[2019-11-22] MEDS: ESCITALOPRAM OXALATE (10 MG) 10 MG TABLET PO SCH (08:05)
[2019-11-22] MEDS: ARIPIPRAZOLE 5 MG TABLET PO SCH (08:06)
[2019-11-22] MEDS: ACETAMINOPHEN 325 MG TABLET PO PRN ×2 (08:06→18:33)
[2019-11-22] MEDS: LISINOPRIL (5MG) 5 MG TABLET PO SCH (08:06)
--- NOTE | 2019-11-22 15:39 | NUR ---
Pt. is anxious and was asking for ativan po and given.
[2019-11-22 16:00] VITALS: BP 136/79
[2019-11-22 20:00] VITALS: BP 142/83
[2019-11-22 20:25] VITALS: BP 142/83
[2019-11-22] MEDS: TRAZODONE 50 MG TABLET PO PRN (21:21)
--- NOTE | 2019-11-22 21:25 | NUR ---
PRN TRAZODONE GIVEN PATIENT VERBALIZED THAT SHE IS UNABLE TO SLEEP & FEELING RESTLESS. PT. REQUESTED TO GET SLEEPING PILL & WANTED TO TAKE TRAZODONE. PRN TRAZODONE 50MG 1 TAB PO GIVEN. WILL CONTINUE TO MONITOR FOR EFFECTIVENESS.
--- NOTE | 2019-11-22 22:25 | NUR ---
GPS RN NOTE: ANXIETY/RESTLESSNESS PATIENT VERBALIZED THAT SHE IS FEELING ANXIOUS, RESTLESS & UNABLE TO SLEEP. PATIENT REQUESTED TO GET ATIVAN FOR ANXIETY. PRN ATIVAN 1 MG PO GIVEN ORDERED. WILL CONTINUE TO MONITOR FOR SAFETY & BEHAVIOR.
[2019-11-23] MEDS: LEVOTHYROXINE SODIUM 100 MCG TABLET PO SCH (07:43)
[2019-11-23 08:00] VITALS: BP 132/72
[2019-11-23] MEDS: ARIPIPRAZOLE 5 MG TABLET PO SCH (08:01)
[2019-11-23] MEDS: LISINOPRIL (5MG) 5 MG TABLET PO SCH (08:02)
[2019-11-23] MEDS: ESCITALOPRAM OXALATE (10 MG) 10 MG TABLET PO SCH (08:02)
[2019-11-23 08:06] LABS: PTH, INTACT 24 pg/mL (15-65)
[2019-11-23 10:26] LABS: *SPE ALBUMIN 2.9 g/dL (2.9-4.4); *SPE ALPHA-1-GLOBULIN 0.2 g/dL (0.0-0.4); *SPE ALPHA-2-GLOBULIN 0.8 g/dL (0.4-1.0); *SPE GLOBULIN, TOTAL 2.8 g/dL (2.2-3.9); *SPE M-SPIKE Not Observed g/dL (Not Observed); *SPEGAMMA GLOBULIN 0.8 g/dL (0.4-1.8)
[2019-11-23] MEDS: LORAZEPAM 0.5 MG TABLET PO PRN ×2 (10:32→20:31)
--- NOTE | 2019-11-23 10:33 | NUR ---
RN NOTE- AGITATION/ PT ANXIOUS. REQUESTING ATIVAN 1 MG. MEDICATION GIVEN AT THIS TIME.
--- NOTE | 2019-11-23 10:48 | NUR ---
Probable Cause (PC) Hearing Notification: SW called the pts partner, Kimberly ([phone]), and left a voicemail that informed her that the pt is going to be having a hearing today and explained what that entails.
[2019-11-23] MEDS: ACETAMINOPHEN 325 MG TABLET PO PRN ×2 (12:50→23:33)
--- NOTE | 2019-11-23 12:50 | NUR ---
RN NOTE- PAIN/ PT C/O HEADACHE. TYLENOL 650 MG GIVEN
--- NOTE | 2019-11-23 15:35 | NUR ---
GROUP THERAPY: Pt was present in group discussing "suicidal ideation." S: "I just stopped doing what I needed to do and that is when everything went down hill for me. I wasn't going to kill myself but I was thinking about it constantly. I know that I need to go back to my groups I just need to find a balance. I need to go back to AA and also to my daily outpatient mental health meetings at [facility]." O: Pts mood was depressed with sad affect. Pt appeared with good insight and maintained appropriate eye contact and was cooperative and respectful of her peers. A: Pt gained awareness in how her drinking and not going to AA and not following through with mental health services is a trigger for her suicidal ideation. She expressed intense feelings related to her drinking and appears to assume responsibility for her past behaviors. P: SW will continue to monitor pts suicidal ideation once daily.
[2019-11-23 16:00] VITALS: BP 137/89
--- NOTE | 2019-11-23 20:20 | NUR ---
PT WAS RECEIVED FR THE MORNING SHIFT WITH THE FAMILY VISITOR IN THE ROOM, PT HAS NO S/S AND C/O PAIN AND DISCOMFORT, CONTINUE TO MONITOR PT FOR MOOD AND BEHAVIOR, CK PT Q15 MIN .
--- NOTE | 2019-11-23 20:30 | NUR ---
[facility]PS STATISTICAL METHODS TEACHER NOTES: C/O OF FEELING ANXIOUS PT C/O FEELING ANXIOUS. PER PT, PT REQUEST ATIVAN. CHECK PT VITALS WNL. OFFERED ATIVAN 1MG PO PRN ORDERED. PT AGREED AND TOLERATED MEDICATION WELL. CONTINUE TO MONITOR.
[2019-11-23] MEDS: TRAZODONE 50 MG TABLET PO PRN (21:49)
--- NOTE | 2019-11-23 21:50 | NUR ---
GPS FUNERAL LIMOUSINE DRIVER NOTES: C/O UNABLE TO SLEEP PT C/O UNABLE TO SLEEP. PT STATED, " IM HAVING A HARD TIME SLEEPING." VITALS WNL. OFFERED TRAZODONE 50 MG PO PRN ORDERED. PT AGREED AND TOLERATED THE MEDICATION WELL. CONTINUE TO MONITOR.
--- NOTE | 2019-11-23 23:30 | NUR ---
[facility]PS STAFF OCCUPATIONAL THERAPIST NOTES: C/O OF BACK PAIN PT C/O OF BACK PAIN. PER PT REQUEST TYLENOL. OFFERED TYLENOL 650 MG PO PRN ORDERED. PT AGREED AND TOLERATED MEDICATION WELL. CONTINUE TO MONITOR.
[2019-11-24] MEDS: ACETAMINOPHEN 325 MG TABLET PO PRN ×2 (06:26→17:04)
[2019-11-24 08:00] VITALS: BP 153/94
[2019-11-24] MEDS: LEVOTHYROXINE SODIUM 100 MCG TABLET PO SCH (08:05)
[2019-11-24] MEDS: ESCITALOPRAM OXALATE (10 MG) 10 MG TABLET PO SCH (08:21)
[2019-11-24] MEDS: LISINOPRIL (5MG) 5 MG TABLET PO SCH (08:21)
[2019-11-24] MEDS: LORAZEPAM 0.5 MG TABLET PO PRN ×3 (08:55→23:38)
--- NOTE | 2019-11-24 08:57 | NUR ---
GPS/RN-NOTES PATIENT REQUESTING FOR ATIVAN.STATED" IT WILL HELP ME FOR MY ANXIETY". ATIVAN 1MG P.O GIVEN PRN . WILL CONT. MONITORING FOR SAFETY AND BEHAVIOR.
[2019-11-24] MEDS: ARIPIPRAZOLE 5 MG TABLET PO SCH (09:06)
--- NOTE | 2019-11-24 09:30 | NUR ---
GPS/RN-NOTES PATIENT IN THE DAY ROOM WATCHING TV ,CALM NO ACUTE DISTRESS NOTED.
--- NOTE | 2019-11-24 15:12 | NUR ---
GPS/RN-NOTES PATIENT CAME IN THE NURSE STATION AND REQUESTING FOR ATIVAN. ATIVAN 1MG P.O GIVEN PRN . WILL CONT. MONITORING FOR SAFETY AND BEHAVIOR.
--- NOTE | 2019-11-24 15:45 | NUR ---
GPS/RN-NOTES PATIENT IN THE DAY ROOM WATCHING TV,CALM NO ACUTE DISTRESS NOTED.
[2019-11-24 16:00] VITALS: BP 140/75
--- NOTE | 2019-11-24 17:06 | NUR ---
GPS/RN-NOTES PATIENT C/O HEADACHE AND REQUESTING TYLENOL,TYLENOL 650MG P.O GIVEN PRN ORDER. WILL CONT. MONITORING .
--- NOTE | 2019-11-24 18:26 | NUR ---
GPS/RN-NOTES PATIENT IN THE DAY ROOM INTERACTING WITH CO-PEERS. STATED" TYLENOL HELPS WITH MY HEADACHE".
[2019-11-24] MEDS: TRAZODONE 50 MG TABLET PO PRN (21:09)
[2019-11-24 21:11] VITALS: BP 154/85
[2019-11-25] MEDS: LEVOTHYROXINE SODIUM 100 MCG TABLET PO SCH (07:54)
[2019-11-25 08:00] VITALS: BP 151/75
[2019-11-25 08:21] LABS: BASOPHILS % (AUTO) 0.6 % (0.0-2.0); EOSINOPHILS % (AUTO) 2.3 % (0.0-6.0); HEMATOCRIT 32 % (33-45); HEMOGLOBIN 10.9 g/dL (11.5-14.8); LYMPHOCYTES # (AUTO) 1.4 /CMM (0.8-4.8); MEAN CORPUSCULAR HGB CONC 34 g/dl (31.0-36.0); MEAN CORPUSCULAR VOLUME 89 fL (82-100); MONOCYTES # (AUTO) 0.4 /CMM (0.1-1.30); MONOCYTES % (AUTO) 10.4 % (2.0-12.0); NEUTROPHILS % (AUTO) 50.7 % (43.0-81.0); PLATELET COUNT (AUTO) 287 /CMM (150-450); RED BLOOD CELL COUNT(AUTO) 3.62 MIL/uL (4.0-5.2)
[2019-11-25] MEDS: ARIPIPRAZOLE 5 MG TABLET PO SCH (08:43)
[2019-11-25] MEDS: LISINOPRIL (5MG) 5 MG TABLET PO SCH (08:43)
[2019-11-25] MEDS: ESCITALOPRAM OXALATE (10 MG) 10 MG TABLET PO SCH (08:43)
[2019-11-25 08:48] LABS: CALCIUM, SERUM 8.8 mg/dL (8.5-10.1); CREATININE 0.8 mg/dL (0.6-1.3); PHOSPHORUS 4.2 mg/dL (2.5-4.9); POTASSIUM 3.9 mmol/L (3.5-5.1)
--- NOTE | 2019-11-25 09:00 | NUR ---
RN NOTE - RECEIVED PT LYING IN BED. NO ACUTE DISTRESS NOTED. VSS, AFEBRILE. A+OX 3. ABLE TO MAKE NEEDS KNOWN.PT REMAINS DEPRESSED AND ANXIOUS. FLAT AFFECT. PT DENIES SI/HI/AH/VH AT PRESENT TIME. PT IS COMPLIANT WITH MEDICATION ADMINISTRATION AND PLAN OF CARE. WILL CONT TO MONITOR PT PER [facility] PROTOCOL
[2019-11-25] MEDS: LORAZEPAM 0.5 MG TABLET PO PRN ×2 (09:43→23:47)
--- NOTE | 2019-11-25 09:43 | NUR ---
RN NOTE: PT C/O INCREASED ANXIETY. REQUESTING ATIVAN. ATIVAN 1MG PO ADMINISTERED.
[2019-11-25] MEDS: ACETAMINOPHEN 325 MG TABLET PO PRN ×2 (10:45→18:43)
--- NOTE | 2019-11-25 10:45 | NUR ---
RN NOTE: PT C/O BILATERAL LEG PAIN. REQUESTING TYLENOL. TYLENOL 650 MG PO PRN GIVEN
[2019-11-25 16:11] VITALS: BP 163/89
--- NOTE | 2019-11-25 18:43 | NUR ---
RN NOTE: PT C/O LEFT SHOULDER PAIN, 8/10 ON SCALE. MEDICATED WITH TYLENOL 650MG PO PRN.
[2019-11-25 20:12] VITALS: BP 154/78
[2019-11-25] MEDS: TRAZODONE 50 MG TABLET PO PRN (21:46)
--- NOTE | 2019-11-25 21:48 | NUR ---
GPS RN NOTES: C/O UNABLE TO SLEEP PT C/O UNABLE TO SLEEP. PT STATED, " I CANT SLEEPING." OFFERED TRAZODONE 50 MG PO PRN ORDERED. PT AGREED AND TOLERATED THE MEDICATION WELL. CONTINUE TO MONITOR.
--- NOTE | 2019-11-25 23:55 | NUR ---
GPS RN NOTE: PT C/O INCREASED ANXIETY. REQUESTING ATIVAN. ATIVAN 1MG PO ADMINISTERED. CONTINUE TO MONITOR.
[2019-11-26 08:00] VITALS: BP 141/79
[2019-11-26] MEDS: LEVOTHYROXINE SODIUM 100 MCG TABLET PO SCH (08:29)
[2019-11-26] MEDS: ARIPIPRAZOLE 5 MG TABLET PO SCH (08:55)
[2019-11-26] MEDS: LISINOPRIL (5MG) 5 MG TABLET PO SCH (08:56)
[2019-11-26] MEDS: ESCITALOPRAM OXALATE (10 MG) 10 MG TABLET PO SCH (08:56)
[2019-11-26] MEDS ORDERED: TRAZODONE 50 MG TABLET PO PRN (09:00)
--- NOTE | 2019-11-26 09:27 | NUR ---
GPS RN OPENING NOTE: RECEIVED PT LYING IN BED. NO ACUTE DISTRESS NOTED. VSS, A+OX 3. ABLE TO MAKE NEEDS KNOWN. PT ANXIOUS WITH FLAT AFFECT. PT DENIES SI/HI/AH/VH AT PRESENT TIME. PT IS COMPLIANT WITH MEDICATION ADMINISTRATION AND PLAN OF CARE. WILL CONT TO MONITOR PT Q15 PER GPS PROTOCOL FOR MOOD, SAFETY AND BEHAVIOR
[2019-11-26 16:00] VITALS: BP 159/94
[2019-11-26] MEDS: LORAZEPAM 0.5 MG TABLET PO PRN ×2 (16:11→23:16)
[2019-11-26] MEDS: ACETAMINOPHEN 325 MG TABLET PO PRN (18:18)
--- NOTE | 2019-11-26 19:30 | NUR ---
OPENING NOTES: PATIENT RESTING IN ROOM. BREATHING EVEN AND UNLABORED.DEPRESSED EASILY AGITAED CALM, COOPERTTIVE AT THIS TIME, AND FRIENDLY. NO ACUTE DISTRESS NOTED . NO SOB NOTED. DENIES ANY PAIN OR DISCOMFORT AT THIS TIME. DENIES SI/HI AT THIS TIME. WILL CONTINUE TO MONITOR Q15 MINS FOR BEHAVIOR AND SAFETY. CONTINUE TO MONITOR.
[2019-11-26 20:54] VITALS: BP 123/73
--- NOTE | 2019-11-26 23:19 | NUR ---
RN NOTES: AGITATION PT. C/O FEELING ANXIOUS ,RESTLESS ,ATIVAN 1 MG PO PRN GIVEN PER PT. REQUEST , WILL CONTINUE TO MONITOR.
--- NOTE | 2019-11-27 06:28 | NUR ---
GPS RN CLOSING NOTE: PATIENT IN BED ASLEEP,COMFORTABLY, EASILY AGITAED ,NO ACUTE DISTRESS NOTED, NO BEHAVIOR PROBLEMS NOTED ,DENIES SI/HI/AVH AT THIS TIME. SAFETY PRECAUTIONS IMPLEMENTED.ALL NEEDS ATTENDED AND ANTICIPATED, ENCOURGED FOR VERBALIZED ANY FEELING ,BED ALARM ON AND IN LOCKED POSITION. WILL CONTINUE TO MONITOR FOR PT'S SAFETY AND BEHAVIOR.
[2019-11-27 08:00] VITALS: BP 136/76
[2019-11-27] MEDS: ESCITALOPRAM OXALATE (10 MG) 10 MG TABLET PO SCH (08:10)
[2019-11-27] MEDS: ARIPIPRAZOLE 5 MG TABLET PO SCH (08:10)
[2019-11-27] MEDS: LEVOTHYROXINE SODIUM 100 MCG TABLET PO SCH (08:10)
[2019-11-27] MEDS: LISINOPRIL (5MG) 5 MG TABLET PO SCH (08:20)
--- NOTE | 2019-11-27 09:27 | NUR ---
GPS RN OPENING NOTE: RECEIVED PT LYING IN BED. NO ACUTE DISTRESS NOTED. VSS, AOX3 REPORTS SLEEPING INTERMITTENTLY BUT FEELING RESTED. ABLE TO MAKE NEEDS KNOWN. DENIES PAIN AT THIS TIME. PT ANXIOUS WITH FLAT AFFECT. PERFORMED AM CARE AND WILL SHOWER. PT DENIES SI/HI/AH/VH AT PRESENT TIME. PT IS COMPLIANT WITH MEDICATION ADMINISTRATION AND PLAN OF CARE. WILL CONT TO MONITOR PT Q15 PER GPS PROTOCOL FOR MOOD, SAFETY AND BEHAVIOR
[2019-11-27] MEDS: ACETAMINOPHEN 325 MG TABLET PO PRN (11:42)
[2019-11-27] MEDS: LORAZEPAM 0.5 MG TABLET PO PRN ×2 (13:23→21:21)
--- NOTE | 2019-11-27 13:30 | NUR ---
GPS RN NOTE: ANXIETY PATIENT C/O ANXIETY AND IRRITABILITY. REQUESTED ATIVAN AND ADMINISTERED ORDERED. CURRENTLY READING RECOVERY MATERIAL TRYING TO CALM HER AGITATION. WILL CONTINUE TO MONITOR Q15 FOR MOOD, SAFETY AND BEHAVIOR.
[2019-11-27 16:00] VITALS: BP 152/94
[2019-11-27] MEDS ORDERED: CLONIDINE HCL 0.1 MG TABLET PO STA (17:18)
[2019-11-27] MEDS ORDERED: CLONIDINE HCL 0.1 MG TABLET PO PRN (17:30)
--- NOTE | 2019-11-27 19:24 | NUR ---
GPS RN NOTE: BLOOD PRESSURE BP WENT UP TO 166/95 AROUND 1715. DMITIRY SPORTS EQUIPMENT SUPERVISOR ORDERED CATAPRES 0.2MG PO X1 NOW AND CATAPRES 0.1MG PO Q6HR PRN FOR SBP >160. AFTER INITIAL CATAPRES ADMINISTRATION BP WENT DOWN TO 148/82.
--- NOTE | 2019-11-27 19:30 | NUR ---
RN GPS OPENING NOTES: PATIENT RESTING IN ROOM. BREATHING EVEN AND UNLABORED.DEPRESSED ,EASILY AGITAED CALM, COOPERTTIVE AT THIS TIME, AND FRIENDLY.VISITOR AT BED SIDE NO ACUTE DISTRESS NOTED . NO SOB NOTED. DENIES ANY PAIN OR DISCOMFORT AT THIS TIME. DENIES SI/HI AT THIS TIME. WILL CONTINUE TO MONITOR Q15 MINS FOR BEHAVIOR AND SAFETY. CONTINUE TO MONITOR.
[2019-11-27 20:11] VITALS: BP 148/82
--- NOTE | 2019-11-27 21:22 | NUR ---
RN NOTES: AGITATION PT. C/O FEELING ANXIOUS ,RESTLESS ,REQUESTING PRN ,ATIVAN 1 MG PO PRN GIVEN PER PT. REQUEST , WILL CONTINUE TO MONITOR.
--- NOTE | 2019-11-28 06:42 | NUR ---
GPS RN CLOSING NOTE: PATIENT IN BED ASLEEP,COMFORTABLY, EASILY AGITAED ,NO ACUTE DISTRESS NOTED, NO BEHAVIOR PROBLEMS NOTED ,DENIES SI/HI/AVH AT THIS TIME. SAFETY PRECAUTIONS IMPLEMENTED.ALL NEEDS ATTENDED AND ANTICIPATED, ENCOURGED FOR VERBALIZED ANY FEELING , WILL CONTINUE TO MONITOR FOR PT'S SAFETY AND BEHAVIOR.
[2019-11-28 08:00] VITALS: BP 131/69
[2019-11-28] MEDS: LEVOTHYROXINE SODIUM 100 MCG TABLET PO SCH (08:08)
[2019-11-28] MEDS: ESCITALOPRAM OXALATE (10 MG) 10 MG TABLET PO SCH (08:08)
[2019-11-28] MEDS: LISINOPRIL (5MG) 5 MG TABLET PO SCH (08:09)
[2019-11-28] MEDS ORDERED: ARIPIPRAZOLE 5 MG TABLET PO SCH (09:00)
[2019-11-28] MEDS: ACETAMINOPHEN 325 MG TABLET PO PRN ×2 (10:08→17:35)
--- NOTE | 2019-11-28 10:10 | NUR ---
Pt. took only 10 mg of Abilify instead of 15 mg and said it's too much for her. Tylenol 2 tabs given for right shoulder pain and lower back pain.
[2019-11-28] MEDS: LORAZEPAM 0.5 MG TABLET PO PRN ×2 (12:57→20:00)
--- NOTE | 2019-11-28 13:00 | NUR ---
Pt. is anxious and asking for ativan po.
[2019-11-28 16:00] VITALS: BP 122/58
--- NOTE | 2019-11-28 16:07 | NUR ---
Group Note: Pt attended group on 11/27/19 at 2pm discussing the topic of concerns around discharge plan. S: "I do not think that I am ready to be discharged and I feel as if the MD is pressuring me. He comes into my room and asks me if I am ready yet and he seems to be impatient, as if me staying here is a hassle. I just do not feel ready at this time and I really think that I need more time. I do not want to go home and face the same issues that caused me to be here." O: Pt is alert and oriented x4. Pt appeared to be in a depressed mood but presented with a calm affect. Pt was able to maintain appropriate eye contact and tone of voice. A: Pt appeared to be confused regarding her discharge timeline. Pt appeared to be upset about being rushed to be discharged. Pt seemed to come to the awareness that she needs to be assertive and inform the MD of the reasons as to why she does not feel ready as well as with the SW so that resources and support can be provided. P: SW will continue to assess pts ability to participate in group milieu.
--- NOTE | 2019-11-28 16:07 | NUR ---
GROUP NOTE: Pt was present in group on this day discussing "discharge plan." S: "I'm discharging on Tuesday and I'm a little scared and nervous because my partner is scared of me. She thinks that I will become aggressive again since I'm bipolar. I have a plan and that same night I will go to AA." O: Pt maintained appropriate eye contact and was calm and cooperative. A: Pt has gained awareness of her mental illness and has a clear plan to address her substance abuse and mental illness. Pt has expressed intense feelings related to her drinking and appears to assume responsibility for her past behaviors. P: SW will continue to offer support to pt via individual and group therapy daily.
--- NOTE | 2019-11-28 17:35 | NUR ---
Tylenol tabs given for right shoulder pain
--- NOTE | 2019-11-28 19:25 | NUR ---
GPS-RN OPENING NOTES: PATIENT IN BED AWAKE, ALERT AND ORIENTED X3, ABLE TO MAKE NEEDS KNOWN. IN NO APPARENT DISTRESS NOTED. PATIENT IS ANXIOUS AT TIMES. PATIENT STATES, SHE HEARS VOICES BEING LOUD, ANGER AND RAGE. REORIENTATION PROVIDED. DENIES SI/HI/ AT THIS TIME. NO AGITATION NOTED. SAFETY PRECAUTIONS IN PLACE. WILL CONTINUE TO MONITOR Q15MIN ROUNDS FOR SAFETY AND BEHAVIOR.
--- NOTE | 2019-11-28 20:01 | NUR ---
GPS RN NOTE: ANXIETY PATIENT C/O FEELING ANXIOUS. REQUESTED ATIVAN AND ADMINISTERED ORDERED. WILL CONTINUE TO MONITOR FOR PATIENT'S SAFETY.
[2019-11-28 20:38] VITALS: BP 156/106
[2019-11-29] MEDS: ACETAMINOPHEN 325 MG TABLET PO PRN ×3 (00:32→18:44)
[2019-11-29] MEDS: LORAZEPAM 0.5 MG TABLET PO PRN ×2 (03:47→13:29)
--- NOTE | 2019-11-29 03:48 | NUR ---
GPS RN NOTE: ANXIETY PATIENT C/O FEELING ANXIOUS. PT. REQUESTED ATIVAN AND ADMINISTERED ORDERED. WILL CONTINUE TO MONITOR FOR PATIENT'S SAFETY.
[2019-11-29 08:00] VITALS: BP 138/82
[2019-11-29] MEDS: ESCITALOPRAM OXALATE (10 MG) 10 MG TABLET PO SCH (08:56)
[2019-11-29] MEDS: ARIPIPRAZOLE 5 MG TABLET PO SCH (08:56)
[2019-11-29] MEDS: LEVOTHYROXINE SODIUM 100 MCG TABLET PO SCH (08:56)
[2019-11-29] MEDS: LISINOPRIL (5MG) 5 MG TABLET PO SCH (08:57)
--- NOTE | 2019-11-29 10:47 | NUR ---
Family Contact: SW called the pts partner, Kimberly ([phone]), and left a voicemail message stating that the pt is going to be discharged back to her home the following day.
--- NOTE | 2019-11-29 11:08 | NUR ---
GPS/RN-NOTES PATIENT C/O RIGHT SHOULDER PAIN AND REQUESTING FOR TYLENOL. TYLENOL 650MG P.O GIVEN PRN ORDER. WILL CONT. MONITORING .
[2019-11-29 11:17] LABS: BASOPHILS % (AUTO) 0.5 % (0.0-2.0); EOSINOPHILS % (AUTO) 0.6 % (0.0-6.0); HEMATOCRIT 36 % (33-45); HEMOGLOBIN 12.2 g/dL (11.5-14.8); LYMPHOCYTES # (AUTO) 1.6 /CMM (0.8-4.8); LYMPHOCYTES % (AUTO) 21.7 % (20.0-44.0); MEAN CORPUSCULAR HGB CONC 34 g/dl (31.0-36.0); MEAN CORPUSCULAR VOLUME 89 fL (82-100); MONOCYTES # (AUTO) 0.7 /CMM (0.1-1.30); MONOCYTES % (AUTO) 9.2 % (2.0-12.0); NEUTROPHILS # (AUTO) 5.1 /CMM (1.8-8.9); PLATELET COUNT (AUTO) 337 /CMM (150-450); RED BLOOD CELL COUNT(AUTO) 4.09 MIL/uL (4.0-5.2); WHITE BLOOD COUNT (AUTO) 7.6 K/uL (4.3-11.0)
[2019-11-29 11:31] LABS: CALCIUM, SERUM 9.5 mg/dL (8.5-10.1); CREATININE 0.9 mg/dL (0.6-1.3); MAGNESIUM 1.8 mg/dL (1.8-2.4); PHOSPHORUS 3.6 mg/dL (2.5-4.9); POTASSIUM 4.2 mmol/L (3.5-5.1)
--- NOTE | 2019-11-29 14:44 | NUR ---
Family Contact: SW called the pts partner, Kimberly ([phone]), and she stated that she will be arriving on the unit to meet with the SW and the pt together to discuss the discharge.
--- NOTE | 2019-11-29 15:23 | NUR ---
Group Note: Pt attended group on 11/27/19 at 2pm discussing the topic of social supports. S: "I have my partner who is always there for me. She is scared about me being discharged home this time because she thinks that I am going to hurt her again. I just want her to know that I will be taking my medicine and I will do whatever it takes for her because she has done so much for me." O: Pt is alert and oriented x4. Pt appeared to be in a euthymic mood but presented with a calm affect. Pt was able to maintain appropriate eye contact and tone of voice. A: Pt appeared to understand that she has a support that she can rely on. Pt stated that if she stops taking her medicine or if she has any fears that she can rely on her partner instead of keeping everything to herself. P: SW will continue to assess pts ability to participate in group milieu.
[2019-11-29 16:00] VITALS: BP 162/106
[2019-11-29 20:10] VITALS: BP 146/100
--- NOTE | 2019-11-29 22:11 | NUR ---
GPS-RN NOTE: INSOMNIA PATIENT C/O INABILITY TO SLEEP AND REQUESTING FOR TRAZADONE. ADMINISTERED TRAZADONE ORDERED. WILL CONTINUE TO MONITOR HOURS OF SLEEP AND PT'S SAFETY.
[2019-11-30] MEDS: LORAZEPAM 0.5 MG TABLET PO PRN (01:35)
--- NOTE | 2019-11-30 01:35 | NUR ---
GPS RN NOTE: ANXIETY PATIENT C/O FEELING ANXIOUS. PT. REQUESTED ATIVAN AND ADMINISTERED ORDERED. WILL CONTINUE TO MONITOR FOR PATIENT'S SAFETY.
[2019-11-30] MEDS: ACETAMINOPHEN 325 MG TABLET PO PRN ×2 (05:43→09:45)
[2019-11-30 08:00] VITALS: BP 132/78
[2019-11-30 08:13] VITALS: BP 132/78
[2019-11-30] MEDS: ESCITALOPRAM OXALATE (10 MG) 10 MG TABLET PO SCH (08:13)
[2019-11-30] MEDS: LISINOPRIL (5MG) 5 MG TABLET PO SCH (08:13)
[2019-11-30] MEDS: LEVOTHYROXINE SODIUM 100 MCG TABLET PO SCH (08:13)
[2019-11-30] MEDS: ARIPIPRAZOLE 5 MG TABLET PO SCH (08:13)
--- NOTE | 2019-11-30 09:45 | NUR ---
GPS/RN-NOTES PATIENT C/O RIGHT SHOULDER AND BACK PAIN AND REQUESTING FOR TYLENOL. TYLENOL 650MG P.O GIVEN PRN ORDER. WILL CONT. MONITORING .
--- NOTE | 2019-11-30 10:30 | NUR ---
gps/rn-notes Patient watching tv in the day room,no acute distress noted. denies any discomfort at this time.
--- NOTE | 2019-11-30 13:11 | NUR ---
GPS/RN-NOTES PATIENT WAS DISCHARGE TO HOME TODAY . DR. PENNINGTON AND FAIZAN JACOBSON BOTH AWARE OF THE DISCHARGE WITH ORDERS. PATIENT DID NOT VERBALIZE SI/HI,DENIES VISUAL/AUDITORY HALLUCINATIONS AT THE TIME OF DISCHARGE. ALL DISCHARGE MEDICATIONS WAS REVIEWED WITH THE PATIENT WITH UNDERSTANDING RX AND ALL DISCHARGE PAPERS WAS HANDED TO HER. INSTRUCTED PATIENT TO GO TO THE NEAREST EMERGENCY ROOM IN CASE OF EMERGENCY. PATIENT WAS AIRCRAFT LAYOUT WORKER BY HER PARTNER ILDEFONSO VIA PRIVATE CAR. PATIENT LEFT THE UNIT IN STABLE CONDITION ALERT ORIENTED X3 ABLE TO AMBULATE WITH STEADY GAIT. ALL BELONGINGS WAS GIVEN TO HER. PATIENT WAS ASSISTED BY THE ONE STAFF TO THE LOBBY FOR SAFETY. Addendum: 11/30/19 at 1550 by DENNYS GARDNER RN IN ADDITION TO MY ABOVE NOTES,PATIENT STRONGLY REFUSED FULL BODY ASSESSMENT PRIOR TO THE DISCHARGE.
--- NOTE | 2019-11-30 13:49 | NUR ---
Discharge Note: Pt was discharged to her home located at [address] [address]; ([phone]). Pt was discharged at 1pm and was picked up by her partner, Kimberly ([phone]), who was informed of the placement. Upon discharge, the pt appeared to be in a euthymic mood and presented with a calm affect. Pt appeared to be alert and oriented x4 (time, place, self and situation). Pt denied both suicidal and homicidal ideation as well as auditory and visual hallucinations. Pt was provided with three substance abuse referrals that are listed below. Pt was referred to psychiatrist, Dr. Bernard Herman, located at [address] [facility] [id number], [place] [address]; . Pt stated that she will call to make an appointment as she does not know her [facility] outpatient program schedule at this time. Pt will also continue to be under the care of her fork truck operator, Dr. Edenilson Parr, located at [address] [address]; ; and a fax of records was sent to: ([phone]). Pt has an appointment with her fork truck operator on 12/04/19 at 10:30am. Substance Abuse Referrals: [facility] [address] [facility] [place] [address] [facility] [address] [place] Provider Mental Health Treatment Tele-dermatology HIV Services Telemedicine Services [place] [address] [place] [address] [facility] [address] [place] [address]
== END 2019-11-30 13:15 | disposition home or self-care (01) | DRG 885 ==
LOC: ER 15:38 → GPS 11-19 11:41
PROVIDERS: ADMIT Psychiatry & Neurology Psychiatry; ATTEND Hospitalist
DX: F31.5 Bipolar disorder, current episode depressed, severe, with psychotic features (principal); N17.0 Acute kidney failure with tubular necrosis; E22.2 Syndrome of inappropriate secretion of antidiuretic hormone; E03.9 Hypothyroidism, unspecified; D50.9 Iron deficiency anemia, unspecified; I10 Essential (primary) hypertension; E87.6 Hypokalemia; E78.5 Hyperlipidemia, unspecified; M19.90 Unspecified osteoarthritis, unspecified site; F29 Unspecified psychosis not due to a substance or known physiological condition
CPT/HCPCS: 36415; 80048-TC; 80053-TC; 80061-TC; 80076-TC; 80305; 81000-TC; 82550-TC; 82962-TC; 83735-TC; 83970; 84100-TC; 84155; 84165; 84443-TC; 84550-TC; 85025-TC; 87081-TC; G0480

== ENCOUNTER 2019-12-02 09:20 | Inpatient (IN) | payer MEDICARE, OTHER ==
[~2019-12-02] VITALS: Ht 170.2 cm; Wt 72.1 kg
[~2019-12-02 09:20] MED LIST changes: -ALPR2TAB2 PO; -AMLO5TAB4 PO; -ATOR10TA PO; -CHLO10TA5 PO; -DIVA250T PO; +DULO60CA64 PO; -FLUO20CA36 PO; +LISI2.5T2 PO; +VENL75CA62 PO; +ZOLP10TA2 PO
--- NOTE | 2019-12-02 09:35 | NUR ---
DAMPER MAKER AT BEDSIDE FOR BLOOD DRAW.
[2019-12-02 09:39] LABS: BASOPHILS # (AUTO) 0.1 /CMM (0.0-0.2); BASOPHILS % (AUTO) 0.7 % (0.0-2.0); EOSINOPHILS % (AUTO) 0.7 % (0.0-6.0); HEMATOCRIT 37 % (33-45); HEMOGLOBIN 12.5 g/dL (11.5-14.8); LYMPHOCYTES # (AUTO) 1.3 /CMM (0.8-4.8); LYMPHOCYTES % (AUTO) 17.3 % (20.0-44.0); MEAN CORPUSCULAR HGB CONC 34 g/dl (31.0-36.0); MEAN CORPUSCULAR VOLUME 89 fL (82-100); MONOCYTES # (AUTO) 0.6 /CMM (0.1-1.30); MONOCYTES % (AUTO) 7.6 % (2.0-12.0); NEUTROPHILS # (AUTO) 5.6 /CMM (1.8-8.9); NEUTROPHILS % (AUTO) 73.7 % (43.0-81.0); PLATELET COUNT (AUTO) 307 /CMM (150-450); RED BLOOD CELL COUNT(AUTO) 4.17 MIL/uL (4.0-5.2); WHITE BLOOD COUNT (AUTO) 7.6 K/uL (4.3-11.0)
[2019-12-02 09:54] LABS: CALCIUM, SERUM 10.2 mg/dL (8.5-10.1); CARBON DIOXIDE 24 mmol/L (21-32); CHLORIDE 93 mmol/L (98-107); CREATININE 0.9 mg/dL (0.6-1.3); GLUCOSE 127 mg/dL (74-106); POTASSIUM 4.1 mmol/L (3.5-5.1); SODIUM SERUM 129 mmol/L (136-145); UREA NITROGEN, BLOOD 11 mg/dL (7-18)
[2019-12-02 10:00] LABS: ACETAMINOPHEN < 2 ug/ml (10-30); ALANINE AMINOTRANSFERASE 23 U/L (12-78); ALCOHOL, BLOOD < 3 mg/dL (0-0); ALKALINE PHOSPHATASE 103 U/L (46-116); ASPARTATE AMINOTRANSFERASE 31 U/L (15-37); BILIRUBIN,DIRECT 0.1 mg/dL (0.0-0.2); BILIRUBIN,TOTAL 0.3 mg/dL (0.2-1.0); SALICYLATE 1.5 mg/dL (2.8-20.0); TOTAL PROTEIN, SERUM 7.7 g/dL (6.4-8.2)
[2019-12-02] MEDS ORDERED: TRAZ-257 PO (10:04)
[2019-12-02] MEDS ORDERED: LORA-259 PO (10:04)
[2019-12-02] MEDS ORDERED: ARIP10TA9 PO (10:04)
[2019-12-02] MEDS ORDERED: ESCI10TA PO (10:04)
[2019-12-02 10:29] LABS: APPEARANCE,URINE Clear (CLEAR); BILIRUBIN,URINE Negative (NEGATIVE); BLOOD, URINE Trace-intact Ery/uL (NEGATIVE); COLOR,URINE Yellow (YELLOW); KETONES,URINE Trace (NEGATIVE); LEUKOCYTE ESTERASE ,URINE Negative (NEGATIVE); NITRITE, URINE Negative (NEGATIVE); PH,URINE 5.5 (5.0-8.0); PROTEIN,URINE 30 mg/dl (NEGATIVE); UGLUCOSE Negative (NEGATIVE); UROBILINOGEN,URINE 0.2 EU/dL (0.2)
[2019-12-02 10:39] LABS: BACTERIA,URINE Few /HPF (None Seen); WBC,URINE NONE SEEN /HPF (0-3)
[2019-12-02 10:40] LABS: SQUAMOUS EPITHELIAL CELL,UR Few /HPF (None Seen)
--- NOTE | 2019-12-02 11:30 | NUR ---
assumed care of pt, pt here for "hearing voices" dnies any s/i-h/i, pt in bed 12, awake, aler,t- sob, placed on monitor, vss, pending md henderson
--- NOTE | 2019-12-02 12:00 | NUR ---
CALLED RECORDS MANAGEMENT DIRECTOR FOR EVAL.
--- NOTE | 2019-12-02 13:44 | NUR ---
called blessing dan soon
--- NOTE | 2019-12-02 13:59 | NUR ---
AR AT BEDSIDE.
--- NOTE | 2019-12-02 14:00 | NUR ---
NURSING SUP GAVE GPS 214B.
--- NOTE | 2019-12-02 14:45 | NUR ---
RN NOTE- ADMISSION/ PT ADMITTED TO [facility] FOR PSYCHOSIS AND BIPOLAR DISORDER. PT HAVING AUDITORY HALLUCINATIONS TELLING HER TO "GO AND RUN AWAY." PT RECENTLY DISCHARGED FROM THIS FACILITY AND SHE IMMEDIATELY BECAME NON MED COMPLIANT REFUSING TO TAKE HER ABILIFY. PT DETERIORATED QUICKLY. ON FACE TO FACE ASSESSMENT, SHE IS ALERT, ORIENTED TO PERSON. FEARFUL, CRYING AND ANXIOUS. SHE STATED THAT "I HAVE TO TALK TO TIA IN THREE DOG NIGHT" (REFERRING TO [address] [employer]) . VS- B/P 143/93. HR- 99. RR-20. TEMP- 98.0. SATURATION- 99% RA. HER SKIN IS INTACT, SYSTEMS WNL, LABS NA @129, TOX SCREEN NEG, ACCUCHECK- BS-112. ORIENTED TO UNIT, ATIVAN 0.5 MG TO BE GIVEN FOR ANXIETY. PT RIGHT PAMPHLET PROVIDED. WILL FOLLOW MD ORDERS AND PROVIDE SAFE THERAPEUTIC ENVIRONMENT.
--- NOTE | 2019-12-02 14:57 | NUR ---
report given to daily serrano for yessenia; pt will be transported to gps
[2019-12-02] MEDS ORDERED: MAGNESIUM HYDROXIDE 30 ML UDC PO PRN ×2 (15:00→16:00)
[2019-12-02] MEDS ORDERED: MAG HYDROX/AL HYDROX/SIMETH 30 ML UDC PO PRN ×2 (15:00→16:00)
[2019-12-02] MEDS ORDERED: TEMAZEPAM 7.5 MG CAPSULE PO PRN ×2 (15:00→16:00)
[2019-12-02] MEDS ORDERED: BLOOD SUGAR DIAGNOSTIC 1 EACH STRIP IN ONE ×2 (15:00→16:00)
[2019-12-02] MEDS: LORAZEPAM 0.5 MG TABLET PO PRN (15:35)
--- NOTE | 2019-12-02 15:35 | NUR ---
RN NOTE-AGITATION/ PT W ANXIETY, TEARFULNESS, SHAKING. ATIVAN 0.5 MG GIVEN AT THIS TIME.
[2019-12-02 16:00] VITALS: BP 149/93
[2019-12-02] MEDS ORDERED: LORAZEPAM 0.5 MG TABLET PO PRN (16:00)
[2019-12-02] MEDS ORDERED: ACETAMINOPHEN 325 MG TABLET PO PRN (16:00)
--- NOTE | 2019-12-02 16:30 | NUR ---
RN NOTE- AGITATION/ RX EFFECTIVE. PT CALMER
[2019-12-02 20:26] VITALS: BP 114/71
--- NOTE | 2019-12-02 21:08 | NUR ---
MS/RN NOTES Patient in bed, unable to sleep. Requested for Sleeping medication. Restoril 1 tab given as ordered. Will continue plan of care.
[2019-12-03 06:38] LABS: BASOPHILS % (AUTO) 0.5 % (0.0-2.0); EOSINOPHILS % (AUTO) 1.5 % (0.0-6.0); HEMATOCRIT 35 % (33-45); HEMOGLOBIN 11.7 g/dL (11.5-14.8); LYMPHOCYTES # (AUTO) 1.7 /CMM (0.8-4.8); LYMPHOCYTES % (AUTO) 29.4 % (20.0-44.0); MEAN CORPUSCULAR HGB CONC 34 g/dl (31.0-36.0); MEAN CORPUSCULAR VOLUME 89 fL (82-100); MONOCYTES # (AUTO) 0.6 /CMM (0.1-1.30); MONOCYTES % (AUTO) 10.8 % (2.0-12.0); NEUTROPHILS # (AUTO) 3.3 /CMM (1.8-8.9); NEUTROPHILS % (AUTO) 57.8 % (43.0-81.0); PLATELET COUNT (AUTO) 285 /CMM (150-450); RED BLOOD CELL COUNT(AUTO) 3.91 MIL/uL (4.0-5.2); WHITE BLOOD COUNT (AUTO) 5.8 K/uL (4.3-11.0)
[2019-12-03 07:15] LABS: ALBUMIN 3.6 g/dL (3.4-5.0); BILIRUBIN,TOTAL 0.4 mg/dL (0.2-1.0); CALCIUM, SERUM 9.3 mg/dL (8.5-10.1); PHOSPHORUS 3.7 mg/dL (2.5-4.9); POTASSIUM 3.6 mmol/L (3.5-5.1); TOTAL PROTEIN, SERUM 7.2 g/dL (6.4-8.2)
[2019-12-03 07:44] LABS: THYROID STIMULATING HORMONE 1.398 uIU/mL (0.358-3.74)
[2019-12-03 08:00] VITALS: BP 148/97
[2019-12-03] MEDS: LEVOTHYROXINE SODIUM 100 MCG TABLET PO SCH (08:08)
[2019-12-03] MEDS ORDERED: LISINOPRIL (5MG) 5 MG TABLET PO SCH (09:00)
[2019-12-03] MEDS ORDERED: ESCITALOPRAM OXALATE (10 MG) 10 MG TABLET PO SCH (09:30)
--- NOTE | 2019-12-03 09:41 | NUR ---
gps stuffer: psych seen by dr. roberson with new orders. orders acknowledged.
--- NOTE | 2019-12-03 15:23 | NUR ---
Family Contact: SW called the pts partner, Kimberly ([phone]), and inquired about why the pt was admitted back to the hospital after a short discharge period. Pts partner stated that the pt began acting bizarre and was making bizarre statements. SW stated that she will keep her updated regarding the pts discharge plan.
[2019-12-03 16:00] VITALS: BP 148/96
--- NOTE | 2019-12-03 16:10 | NUR ---
Initial Discharge Plan: Pt currently resides with her partner, Kimberly ([phone]), located at [address] [place] [address], [place] [address]. Per pt, she would like to return to her home. SW will work with the pt and the MD regarding appropriate discharge planning. SW will form a safe and proper discharge.
--- NOTE | 2019-12-03 19:10 | NUR ---
RN OPENING NOTES: RECEIVED PT IN BED WITH HAND MOVEMENTS AND POINTING AT HER HEAD, HER CEILING, AND SAYING "FATHER" AND IS SMILING. ILDEFONSO (LIFE PARTNER) AT BEDSIDE AND SAID SHE CANNOT SEE HER LIKE THAT AND SHE IS HOLDING BACK TO CRY. SHE SAID SHE WOULD LIKE TO BE NOTIFIED BY DR. PENNINGTON AND GIVEN A PHONE CALL TO WHY PT IS ACTING THE WAY SHE IS. ILDEFONSO SAID SHE HAS NEVER SEEN HER LIKE THAT. WOULD LIKE A PHONE CALL [phone]. UPDATED HER THAT SHE WILL BE SEEN BY PSYCHOTHERAPIST TOMORROW. Addendum: 12/04/19 at 0356 by PIETRO REYNOLDS RN NO SOB NOTED. NO S/S OF DISTRESS. BED KEPT IN LOW, LOCKED POSITION, AND SIDE RAILS X 3 UP. BED ALARM ACTIVATED.
--- NOTE | 2019-12-03 19:35 | NUR ---
RN NOTES: UPON THIS TIME, PT WAS FOUND ON THE FLOOR. MYSELF AND ANOTHER RN ASSISTED HER BACK TO BED. PT SMILING AND CONSTANTLY MOVING HER HANDS AND HER LEGS. PT VERY ACTIVE. ASSESSED HER HEAD AND THE REST OF BODY FOR SIGNS OF INJURY. NO SIGNS OTHER THAN WHAT SEEMS TO BE OLD BRUISING ON HER LEFT HAND. PT WAS ABLE TO STAND UP BUT IS STILL PERFORMING STRANGE MOVEMENTS AND ERRATIC AND EXTREME MOVEMENTS WITH HER HANDS AND LEGS. PT ABLE TO MOVE ALL EXTREMITIES. PT KEEPS VERBALIZING "SPIRITUAL" "CAT" AND POINTING AT HER TATTOOS. WILL CONTINUE TO MONITOR. CHARGE NOTIFIED. WILL PLACE ON ARVIND CHAIR FOR SAFETY FOR NOW.
--- NOTE | 2019-12-03 19:40 | NUR ---
RN NOTES: PT PLACED ON ARVIND CHAIR DUE TO VERY ACTIVE MOVEMENT. KEEPS MOVING HANDS AND LEGS AND WHAT APPEARS TO BE SIGN LANGUAGE. PT NOT SAFE TO STAY IN BED ALONE SHE IS VERY ACTIVE. PT VERY CONFUSED AND DELUSIONAL. PT ABLE TO AMBULATE ON HER OWN BUT HER MOVEMENT DOES NOT SEEM SAFE SHE IS ABLE TO GET OUT OF BED ON HER OWN.
[2019-12-03 20:06] VITALS: BP 129/75
--- NOTE | 2019-12-03 20:13 | NUR ---
RN NOTES: DR. PENNINGTON NOTIFIED OF UNWITNESSED FALL. NO NEW ORDERS.
--- NOTE | 2019-12-03 20:14 | NUR ---
RN NOTES: NURSING EXTERNAL RELATIONS MANAGER, MATTHEW, NOTIFIED WELL. MATTHEW ON FLOOR MAKING HER ROUNDS AND SAW PATIENT ACTIVELY MOVING IN ARVIND CHAIR AND VERY CONFUSED/DELUSIONAL.
[2019-12-03 20:22] VITALS: BP 116/60
--- NOTE | 2019-12-03 20:29 | NUR ---
RN NOTES; PAGED EPIC; AWAITING FOR CALL BACK.
[2019-12-03] MEDS: ACETAMINOPHEN 325 MG TABLET PO PRN (20:44)
--- NOTE | 2019-12-03 20:46 | NUR ---
RN NOTES: PT OFFERED TYLENOL PT UNABLE TO SAY IF SHE IS IN PAIN HER MIND IS RACING AND HAS RESTRICTED SPEAKING. PT SAID YES ALTHOUGH SHE IS CONFUSED. PT KEEPS POINTING. PT STATING "SPIRITS HAVE EYES." PT SMILING BUT DOES NOT APPEARS TO BE IN PAIN. POINTS AT HER HEAD AND THEN TO SOMEONE ELSE. PT SAID SHE WOULD LIKE TYLENOL BECAUSE SHE IS CONFUSED. WILL CONTINUOUSLY ASSESS PT.
--- NOTE | 2019-12-03 20:50 | NUR ---
RN NOTES: EVEN IN [facility], PT KEEPS LEANING.
--- NOTE | 2019-12-03 21:23 | NUR ---
RN NOTES: PT STILL DELUSIONAL. POINTING AT HER TATTOOS ON HER SKIN AND DOING SIGN LANGUAGE WITH FEW WORDS.
--- NOTE | 2019-12-03 21:38 | NUR ---
RN NOTES: DR. ARAGON NOTIFIED ABOUT UNWITNESSED FALL. VITALS ARE OK AND NO SIGNS OF INJURY ON HEAD. PT UNABLE TO TELL IF SHE IS IN PAIN SHE IS CONFUSED. PT JUST SMILING AND NO SIGNS OF DISTRESS. PER MD, CONTINUE TO MONITOR. HE IS AWARE THAT SHE IS IN ARVIND CHAIR. NO NEW ORDERS.
--- NOTE | 2019-12-03 21:43 | NUR ---
RN NOTES: SPOKE WITH ILDEFONSO [phone] (PARTNER) THAT PT WAS FOUND ON FLOOR. NO SIGNS OF INJURY ON HER HEAD. PT IN NO SIGNS OF DISTRESS. PT IS SMILING AND IN ARVIND CHAIR. PT CONFUSED AND STILL CONSTANTLY MOVING AROUND IN ARVIND CHAIR.
[2019-12-03] MEDS ORDERED: QUETIAPINE FUMARATE 100 MG TABLET PO SCH (22:00)
--- NOTE | 2019-12-03 22:11 | NUR ---
RN NOTES: ILDEFONSO CALLED BACK AND SAID SHE IS UPSET THAT SHE IS PLACED IN THE CHAIR. EXPLAINED TO HER THAT PT IS NOT STABLE ENOUGH YET TO BE PLACED IN BED SHE IS ACTIVELY MOVING AROUND EVEN IN THE ARVIND CHAIR. SHE IS AT A HIGH RISK FOR FALL. Addendum: 12/04/19 at 0031 by PIETRO REYNOLDS RN ILDEFONSO UPSET BECAUSE SHE STATES THAT SHE HAS CHRONIC BACK PAIN AND HAS METAL IN HER BACK AND HAS A RIGHT SHOULDER DISLOCATION.
--- NOTE | 2019-12-03 23:20 | NUR ---
RN NOTES: PT PLACED BACK IN BED. WILL CONTINUE TO MONITOR.
[2019-12-04 00:06] VITALS: BP 102/36
--- NOTE | 2019-12-04 00:08 | NUR ---
RN NOTES: FED PT SHE WAS HUNGRY. GAVE HER SALTINE CRACKERS, JELLO, JUICE, AND LUISA CRACKERS.
[2019-12-04 00:23] VITALS: BP 104/72
--- NOTE | 2019-12-04 00:29 | NUR ---
RN NOTES: BLOOD PRESSURE RECHECKED MANUALLY DOCUMENTED.
--- NOTE | 2019-12-04 00:31 | NUR ---
RN NOTES: SPIKE MACHINE OPERATOR, MATTHEW, UPDATED ABOUT SITUATION WITH PT SHE WAS ROUNDING ON FLOOR. WILL CONTINUE TO MONITOR PT.
--- NOTE | 2019-12-04 03:09 | NUR ---
RN NOTES: PT STILL AWAKE IN BED AND IS MAKING HAND GESTURES TOWARDS THE WALL AND CEILING AND WOULD SAY "THANK YOU FATHER." ENCOURAGED PT TO GET REST AND SLEEP BUT SHE IS VERY DELUSIONAL.
--- NOTE | 2019-12-04 06:05 | NUR ---
RN NOTES: PT AMBULATED TO BATHROOM. NOW PT SITTING ON CHAIR. PT REFUSING TO GO BACK TO BED.
--- NOTE | 2019-12-04 06:06 | NUR ---
RN NOTES: PT SITTING ON CHAIR IN ROOM WITH ERRATIC HAND AND LEG MOVEMENT.
--- NOTE | 2019-12-04 06:18 | NUR ---
RN NOTES: PT PLACED BACK IN BED MANAGER FRAUD IS AT BEDSIDE FOR LABS.
[2019-12-04 07:09] LABS: CREATININE 1.6 mg/dL (0.6-1.3); MAGNESIUM 2.4 mg/dL (1.8-2.4); PHOSPHORUS 4.8 mg/dL (2.5-4.9); POTASSIUM 3.7 mmol/L (3.5-5.1)
--- NOTE | 2019-12-04 07:15 | NUR ---
RN CLOSING NOTES: ENDORSED TO RN ABOUT DURGA. PT IN BED STILL WITH ERRATIC HAND MOVEMENTS. BED KEPT IN LOW, LOCKED POSITION, AND SIDE RAILS UP. BED ALARM ACTIVATED.
[2019-12-04 07:23] LABS: THYROID STIMULATING HORMONE 2.922 uIU/mL (0.358-3.74); URIC ACID 5.9 mg/dL (2.6-7.2)
[2019-12-04 08:00] VITALS: BP 90/51
--- NOTE | 2019-12-04 08:40 | NUR ---
Family Contact: Pts partner, Kimberly ([phone]), called the SW and left a voicemail providing the SW with more details of the pts bizarre behavior. She stated that she would like to be informed about the pts treatment.
[2019-12-04] MEDS: LEVOTHYROXINE SODIUM 100 MCG TABLET PO SCH (09:44)
[2019-12-04] MEDS: OLANZAPINE 5 MG TABLET PO SCH ×2 (11:04→17:44)
--- NOTE | 2019-12-04 14:00 | NUR ---
ekg done as per orders.dr. roberson ordered ekg.
--- NOTE | 2019-12-04 15:39 | NUR ---
photo of ekg sent to jeanie burgess np and info given to dr. roberson.
[2019-12-04 16:00] VITALS: BP 100/50
--- NOTE | 2019-12-04 16:04 | NUR ---
Group Note: SW encouraged pt to attend group therapy on 12/04/19 at 2pm discussing reality testing regarding their admission. Pt is acting bizarre and is not able to make complete statements or maintain eye contact. Pt appeared to be making short frantic movements and appeared inappropriate. Pt was unable to participate.
--- NOTE | 2019-12-04 16:14 | NUR ---
still attempting to get urine sample from pt.
[2019-12-04] MEDS: LORAZEPAM 0.5 MG TABLET PO PRN (17:07)
--- NOTE | 2019-12-04 17:07 | NUR ---
GIVEN ATIVAN FOR NERVOUSNESS.
--- NOTE | 2019-12-04 19:15 | NUR ---
VOICE MAIL REQUEST LEFT FOR CONSULT WITH DR. TRUJILLO,DUE TO CONFUSION.
[2019-12-04 20:19] VITALS: BP 127/53
--- NOTE | 2019-12-04 21:00 | NUR ---
RN NOTES EXPLAINED TO Pt THAT WE NEEDED TO COLLECT A URINE SAMPLE FROM HER, Pt TRIED TO URINATE ON THE TOILET WITH A HAT, BUT NO URINE OUTPUT CAME OUT. EXPLAINED TO Pt THAT WE COULD DO A FASTER PROCESS BY DOING A STRAIGHT CATH, BUT WHEN EXPLAINING THE PROCEDURE Pt DID NOT WANT THAT TO BE DONE. TOLD Pt THAT IF SHE NEEDS TO GO PEE TO LET ME KNOW BEFORE HAND, Pt SHOOK HER HEAD YES AND SAID OK. BUT Pt IS VERY FORGETFUL, SO MAY NEED RE-ORIENTING AGAIN LATER. WILL CONTINUE TO MONITOR Pt.
[2019-12-04] MEDS: ZOLPIDEM TARTRATE 10 MG TABLET PO PRN (21:30)
[2019-12-04 22:00] VITALS: BP 127/53
--- NOTE | 2019-12-04 22:30 | NUR ---
RN NOTES Pt WAS BEING RESTLESS KEPT GETTING OUT OF BED. ASKED HER IF SHE NEEDED TO GO TO THE BATHROOM, SHE SAID NO. WILL TRY TO COLLECT URINE IN THE MORNING.
[2019-12-05] MEDS: LEVOTHYROXINE SODIUM 100 MCG TABLET PO SCH (06:40)
[2019-12-05 07:45] LABS: BASOPHILS % (AUTO) 0.9 % (0.0-2.0); EOSINOPHILS % (AUTO) 2.9 % (0.0-6.0); HEMATOCRIT 32 % (33-45); LYMPHOCYTES # (AUTO) 1.6 /CMM (0.8-4.8); LYMPHOCYTES % (AUTO) 29.4 % (20.0-44.0); MEAN CORPUSCULAR HGB CONC 34 g/dl (31.0-36.0); MEAN CORPUSCULAR VOLUME 89 fL (82-100); MONOCYTES # (AUTO) 0.6 /CMM (0.1-1.30); NEUTROPHILS # (AUTO) 2.9 /CMM (1.8-8.9); NEUTROPHILS % (AUTO) 55.8 % (43.0-81.0); PLATELET COUNT (AUTO) 275 /CMM (150-450); RED BLOOD CELL COUNT(AUTO) 3.64 MIL/uL (4.0-5.2); WHITE BLOOD COUNT (AUTO) 5.3 K/uL (4.3-11.0)
[2019-12-05 08:00] VITALS: BP 114/70
[2019-12-05 08:05] LABS: ALBUMIN 3.5 g/dL (3.4-5.0); BILIRUBIN,TOTAL 0.3 mg/dL (0.2-1.0); CALCIUM, SERUM 9.1 mg/dL (8.5-10.1); CREATININE 1.9 mg/dL (0.6-1.3); MAGNESIUM 2.6 mg/dL (1.8-2.4); PHOSPHORUS 5.5 mg/dL (2.5-4.9); POTASSIUM 3.7 mmol/L (3.5-5.1); TOTAL PROTEIN, SERUM 6.8 g/dL (6.4-8.2)
[2019-12-05] MEDS: OLANZAPINE 5 MG TABLET PO SCH ×2 (08:37→16:53)
--- NOTE | 2019-12-05 15:09 | NUR ---
Group Note: SW encouraged pt to attend group therapy on 12/05/19 at 2pm discussing discharge planning. Pt is acting bizarre and is not able to make complete statements or maintain eye contact. Pt appeared to be making short frantic movements and appeared inappropriate. Pt was unable to participate. Pt was present in the activities room and began a tangent about the other patients but then was pulled to see her doctor.
[2019-12-05 16:00] VITALS: BP 105/74
[2019-12-05 20:00] VITALS: BP 136/81
[2019-12-05] MEDS: ZOLPIDEM TARTRATE 10 MG TABLET PO PRN (22:01)
--- NOTE | 2019-12-06 05:51 | NUR ---
GPS RN NOTE PT REFUSED TO GIVE URINE SAMPLE FOR UA. PT TOOK URINE CUP FROM THIS NURSE AND THREW IT INSIDE TOILET. WILL ENDORSE TO AM SHIFT TO FOLLOW UP.
[2019-12-06 07:00] LABS: EOSINOPHILS % (AUTO) 1.6 % (0.0-6.0); HEMATOCRIT 31 % (33-45); HEMOGLOBIN 10.5 g/dL (11.5-14.8); LYMPHOCYTES # (AUTO) 1.2 /CMM (0.8-4.8); LYMPHOCYTES % (AUTO) 28.1 % (20.0-44.0); MEAN CORPUSCULAR HGB CONC 34 g/dl (31.0-36.0); MEAN CORPUSCULAR VOLUME 90 fL (82-100); MONOCYTES # (AUTO) 0.5 /CMM (0.1-1.30); MONOCYTES % (AUTO) 11.5 % (2.0-12.0); NEUTROPHILS # (AUTO) 2.4 /CMM (1.8-8.9); NEUTROPHILS % (AUTO) 57.8 % (43.0-81.0); PLATELET COUNT (AUTO) 247 /CMM (150-450); RED BLOOD CELL COUNT(AUTO) 3.48 MIL/uL (4.0-5.2); WHITE BLOOD COUNT (AUTO) 4.2 K/uL (4.3-11.0)
[2019-12-06 07:51] LABS: ALBUMIN 3.2 g/dL (3.4-5.0); BILIRUBIN,TOTAL 0.3 mg/dL (0.2-1.0); CALCIUM, SERUM 9.1 mg/dL (8.5-10.1); CREATININE 1.2 mg/dL (0.6-1.3); MAGNESIUM 2.4 mg/dL (1.8-2.4); PHOSPHORUS 4.2 mg/dL (2.5-4.9); POTASSIUM 3.7 mmol/L (3.5-5.1); TOTAL PROTEIN, SERUM 6.4 g/dL (6.4-8.2)
[2019-12-06] MEDS: LEVOTHYROXINE SODIUM 100 MCG TABLET PO SCH (07:54)
[2019-12-06 08:00] VITALS: BP 141/79
[2019-12-06] MEDS: OLANZAPINE 5 MG TABLET PO SCH ×2 (08:17→17:12)
[2019-12-06 12:07] LABS: *SPE A/G RATIO 1.2 (0.7-1.7); *SPE ALBUMIN 3.3 g/dL (2.9-4.4); *SPE ALPHA-1-GLOBULIN 0.3 g/dL (0.0-0.4); *SPE ALPHA-2-GLOBULIN 0.7 g/dL (0.4-1.0); *SPE GLOBULIN, TOTAL 2.7 g/dL (2.2-3.9); *SPE M-SPIKE Not Observed g/dL (Not Observed); *SPEGAMMA GLOBULIN 0.8 g/dL (0.4-1.8)
[2019-12-06 16:00] VITALS: BP 153/85
--- NOTE | 2019-12-06 16:53 | NUR ---
GPS/RN-NOTES SPOKE WITH RUSSELL ALDRIDGE ORDER TO REPEAT CREATINE KINASE TOTAL AND NOTIFY DR. NAVARRO. CALLED DR. NAVARRO AWAITING FOR CALL BACK.
--- NOTE | 2019-12-06 17:47 | NUR ---
GPS/RN-NOTES RECEIVED A CALL FROM DR. NAVARRO WITH NNO. Addendum: 12/06/19 at 1749 by DENNYS GARDNER RN DR. NAVARRO MADE AWARE OF CREATININE KINASE OF 13.8 WITH NNO.
--- NOTE | 2019-12-06 18:39 | NUR ---
GPS/RN-NOTES PATIENT WAS LOOKING FOR HER DENTURES,STAFF INCLUDING THE CRANE HOIST OR LIFT OPERATOR CHECK HER LOCKER AND ROOM DRAWERS BUT UNABLE TO LOCATE HER DENTURES.PER E COMMERCE DIRECTOR STAFF THE PATIENT DID NOT HAVE DENTURES SINCE THIS MORNING.WILL ENDORSE TO INCOMING SHIFT FOR FOLLOW UP AND CONTINUITY OF CARE.
--- NOTE | 2019-12-06 18:53 | NUR ---
GPS/RN-NOTES UNABLE TO COLLECT URINE DUE TO PATIENT WAS UNCOOPERATIVE,STATED" I FORGET TO COLLECT THE URINE AND WILL TRY AGAIN LATER". PATIENT KEEP POSTPONING ,SPECIMEN CUP GIVEN TO THE PATIENT.WILL ENDORSE TO THE INCOMING NURSE FOR FOLLOW UP AND CONTINUITY OF CARE.
--- NOTE | 2019-12-06 19:30 | NUR ---
GPS/GENERAL II FARMWORKER NOTES: RECEIVED REPORT FROM DAY NURSE REGARDING PT. MISSING DENTURES. TRIED TO LOOK FOR IT AGAIN AND COULD NOT BE FOUND. WILL ENDORSE TO DAY SHIFT TO REPORT TO MANAGEMENT. PT. FAMILY AWARE THAT DENTURES ARE MISSING.
[2019-12-06 20:34] VITALS: BP 154/77
--- NOTE | 2019-12-06 21:44 | NUR ---
GPS/PIGGYBACK CLERK NURSING NOTES: PT. LAYING IN BED AWAKE. NO DISTRESS OR AGITATION NOTED. QUIET AND CALM AT THIS TIME. COOPERATIVE. NO C/O PAIN OR DISCOMFORT. SAFETY ENVIRONMENT OBSERVED AT ALL TIMES. WILL CONTINUE TO MONITOR Q15 MIN FOR SAFETY AND BEHAVIOR.
[2019-12-07] VITALS (7 sets, daily range): BP systolic 133–161; BP diastolic 68–98
[2019-12-07] MEDS: ZOLPIDEM TARTRATE 10 MG TABLET PO PRN ×2 (00:46→21:32)
[2019-12-07] MEDS: ACETAMINOPHEN 325 MG TABLET PO PRN ×3 (02:40→20:23)
[2019-12-07 06:59] LABS: BASOPHILS % (AUTO) 0.7 % (0.0-2.0); EOSINOPHILS % (AUTO) 2.7 % (0.0-6.0); HEMATOCRIT 31 % (33-45); HEMOGLOBIN 10.5 g/dL (11.5-14.8); LYMPHOCYTES # (AUTO) 1.6 /CMM (0.8-4.8); MEAN CORPUSCULAR HGB CONC 34 g/dl (31.0-36.0); MEAN CORPUSCULAR VOLUME 90 fL (82-100); MONOCYTES # (AUTO) 0.5 /CMM (0.1-1.30); MONOCYTES % (AUTO) 10.7 % (2.0-12.0); NEUTROPHILS # (AUTO) 2.6 /CMM (1.8-8.9); NEUTROPHILS % (AUTO) 52.9 % (43.0-81.0); PLATELET COUNT (AUTO) 244 /CMM (150-450); RED BLOOD CELL COUNT(AUTO) 3.47 MIL/uL (4.0-5.2); WHITE BLOOD COUNT (AUTO) 4.9 K/uL (4.3-11.0)
[2019-12-07 07:26] LABS: CALCIUM, SERUM 8.9 mg/dL (8.5-10.1); CREATININE 1.1 mg/dL (0.6-1.3); MAGNESIUM 2.3 mg/dL (1.8-2.4); PHOSPHORUS 3.5 mg/dL (2.5-4.9); POTASSIUM 3.8 mmol/L (3.5-5.1)
[2019-12-07] MEDS: LEVOTHYROXINE SODIUM 100 MCG TABLET PO SCH (08:22)
[2019-12-07] MEDS: OLANZAPINE 5 MG TABLET PO SCH ×2 (08:22→16:51)
--- NOTE | 2019-12-07 12:07 | NUR ---
gps retail service representative: notes lab franca called and spoke to crystal and informed me of ck level of 5.8.
--- NOTE | 2019-12-07 12:20 | NUR ---
gps bead filler: juana hung (acnp) notified and made aware re: ck level=5.8 and informed me to let dr. tay know the result.
--- NOTE | 2019-12-07 12:30 | NUR ---
gps enterprise data architect: notes left message to dr. tay re: ck level=5.8.
--- NOTE | 2019-12-07 14:48 | NUR ---
RN-CO: Searched for patient's dentures all over the unit, including med room, was not able to find it.
[2019-12-07 15:52] LABS: APPEARANCE,URINE CLEAR (CLEAR); BILIRUBIN,URINE NEGATIVE (NEGATIVE); BLOOD, URINE TRACE-INTA Ery/uL (NEGATIVE); COLOR,URINE YELLOW (YELLOW); KETONES,URINE NEGATIVE (NEGATIVE); LEUKOCYTE ESTERASE ,URINE LARGE (NEGATIVE); NITRITE, URINE NEGATIVE (NEGATIVE); PH,URINE 5.5 (5.0-8.0); PROTEIN,URINE NEGATIVE (NEGATIVE); UGLUCOSE NEGATIVE (NEGATIVE); UROBILINOGEN,URINE 0.2 EU/dL (0.2)
[2019-12-07 16:00] LABS: CREATININE, URINE 39.6 MG/DL (30.0-125.0)
[2019-12-07 16:10] LABS: BACTERIA,URINE 2+ /HPF (None Seen); SQUAMOUS EPITHELIAL CELL,UR 0-2 /HPF (None Seen); WBC,URINE 21-50 /HPF (0-3)
[2019-12-07 16:59] LABS: EOSINOPHIL,URINE None Seen
--- NOTE | 2019-12-07 20:23 | NUR ---
PRN TYLENOL GIVEN PATIENT C/O LOWER BACK PAIN 12/10, WANTED TO TAKE TYLENOL. PRN TYLENOL 650 MG PO GIVEN. WILL CONTINUE TO MONITOR.
--- NOTE | 2019-12-07 21:35 | NUR ---
PRN AMBIEN GIVEN PATIENT VERBALIZED THAT SHE IS UNABLE TO SLEEP, WHICH IS CAUSING RESTLESSNESS TO HER. PATIENT REQUESTED TO GET SLEEPING PILL AT THIS TIME. PRN AMBIEN 10 MG 1 TAB PO GIVEN. WILL CONTINUE TO MONITOR CLOSELY FOR SAFETY & BEHAVIOR.
[2019-12-07] MEDS: LORAZEPAM 0.5 MG TABLET PO PRN (23:52)
--- NOTE | 2019-12-07 23:55 | NUR ---
GPS RN NOTE: ANXIETY PATIENT VERBALIZED THAT SHE IS FEELING ANXIOUS & RESTLESS, UNABLE TO SLEEP DUE TO ANXIETY. PATIENT REQUESTED TO GET ANXIETY MEDICINE. PRN ATIVAN 0.5 MG 1 TAB PO GIVEN. WILL CONTINUE TO MONITOR THE PATIENT FOR SAFETY & BEHAVIOR.
[2019-12-08 08:00] VITALS: BP 139/97
[2019-12-08] MEDS: LEVOTHYROXINE SODIUM 100 MCG TABLET PO SCH (08:01)
[2019-12-08] MEDS: OLANZAPINE 5 MG TABLET PO SCH ×2 (08:02→16:03)
[2019-12-08] MEDS: ACETAMINOPHEN 325 MG TABLET PO PRN ×3 (09:09→23:52)
--- NOTE | 2019-12-08 09:09 | NUR ---
RN NOTE: PT C/O 06/12 LOWER BACK PAIN. PT REQUESTED TYLENOL AND STATED TYLENOL IS EFFECTIVE FOR HER PAIN. MEDICATED WITH TYLENOL 650MG PO PRN. WILL MONITOR EFFECTIVENESS OF RX
[2019-12-08 10:23] LABS: ALBUMIN 3.3 g/dL (3.4-5.0); BILIRUBIN,TOTAL 0.2 mg/dL (0.2-1.0); CALCIUM, SERUM 9.3 mg/dL (8.5-10.1); CREATININE 1.1 mg/dL (0.6-1.3); TOTAL PROTEIN, SERUM 6.8 g/dL (6.4-8.2)
--- NOTE | 2019-12-08 10:57 | NUR ---
RN OPENING NOTE: RECEIVED PT AMBULATING IN HALLWAY. NO ACUTE DISTRESS NOTED. A+OX2. PT ABLE TO STATE NAME AND WHERE SHE IS. PT ABLE TO MAKE NEEDS KNOWN. PT STATES CONFUSION AND PSYCHOSIS DUE TO A NEW RX OF AMBIEN AFTER RECENT DISCHARGE. PT CONT TO BE CONFUSED, FEARFUL, PARANOID. DISORIENTED AND UNABLE TO STATE A PLAN OF CARE FOR SELF. PT C/O 06/12 BACK PAIN.MEDICATED WITH TYLENOL 650MG PO PRN. WILL CONT TO MONITOR RX EFFECTIVENESS. PT IS COMPLIANT WITH MEDICATION ADMINISTRATION AND PLAN OF CARE. PT DENIES SI/HI/AH/VH AT PRESENT TIME. WILL CONT TO MONITOR PT FOR SAFETYY AND BEHAVIOR PER GPS PROTOCOL
[2019-12-08] MEDS: LORAZEPAM 0.5 MG TABLET PO PRN (14:04)
--- NOTE | 2019-12-08 14:04 | NUR ---
RN NOTE: PT C/O INCREASING AGITATION. REQUESTING ATIVAN. ATIVAN 0.5 MG PO GIVEN.
[2019-12-08 16:00] VITALS: BP 142/84
--- NOTE | 2019-12-08 16:04 | NUR ---
RN NOTE: PT C/O 6 LOWER BACK PAIN. MEDICATED WITH TYLENOL 650MG PO
--- NOTE | 2019-12-08 19:30 | NUR ---
RN OPENING NOTES: PT. RESTING IN HER ROOM , CONFUSED PARANOID , HYPERVERBAL ,DISORGNIZED EASILY AGITATED , FAMILY MEMBER AT BED SITE, ALL NEEDS ATTENDED ANTICIPATED, ENCOURAGED PT. TO VERBALIZED ANY FEELING , NO ACUTE DISTRESS NOTED , NEEDS FREQUENTLY REDIRECTIONS , REALITY ORIENTIONS PROVIDED, WILL CONTINUITY WITH CARE.
[2019-12-08 20:18] VITALS: BP 120/84
[2019-12-08] MEDS: ZOLPIDEM TARTRATE 10 MG TABLET PO PRN (21:50)
--- NOTE | 2019-12-09 07:35 | NUR ---
RN OPENING NOTE: RECEIVED PT AWAKE AND SITTING IN CHAIR. NO ACUTE DISTRESS NOTED. PT BREATHING EQUAL BILAT AND UNLABORED. PT A+OX2 ON RA WITH SPO2 99%. PT IS COMPLIANT WITHE MEDICATION ADMINISTRATION AND PLAN OF CARE. PT HAS DISORGANIZED AND DELUSIONAL THOUGHT PROCESS. PT THROWING PERSONAL ITEMS IN THE TRASH. UNABLE TO BE REDIRECTED WITH BEHAVIOR. PT IS PARANOID WITH OCCASIONAL AGITATION. PT DENIES SI/HI AT PRESENT TIME. PT DISHEVELED AND UNKEPT. PT INDEPENDENT WITH SELF CARE. PT AMBULATORY WITH STEADY GAIT. CALL LIGHT CLOSE TO PT. WILL CONT TO MONITOR FOR BEHAVIOR AND SAFETY PER GPS PROTOCOL.
[2019-12-09] MEDS: LEVOTHYROXINE SODIUM 100 MCG TABLET PO SCH (07:48)
[2019-12-09 08:00] VITALS: BP 150/98
[2019-12-09] MEDS: OLANZAPINE 5 MG TABLET PO SCH ×2 (08:15→16:13)
[2019-12-09] MEDS: CEPHALEXIN MONOHYDRATE 500 MG CAPSULE PO SCH ×2 (09:23→16:13)
[2019-12-09] MEDS: LORAZEPAM 0.5 MG TABLET PO PRN (11:48)
--- NOTE | 2019-12-09 11:48 | NUR ---
RN NOTE: ANXIETY PT C/O INCREASED ANXIETY AND AGITATION. PT REQUESTING ATIVAN. ATIVAN 0.5 MG PO PRN GIVEN.
[2019-12-09] MEDS: ACETAMINOPHEN 325 MG TABLET PO PRN (15:46)
--- NOTE | 2019-12-09 15:46 | NUR ---
RN NOTE: PAIN PT C/O 03/12 BACK PAIN. MED WITH TYLENOL 650 MG PO PRN
[2019-12-09 16:06] VITALS: BP 123/92
[2019-12-09 20:10] VITALS: BP 112/62
[2019-12-09] MEDS: ZOLPIDEM TARTRATE 10 MG TABLET PO PRN (22:14)
--- NOTE | 2019-12-09 22:17 | NUR ---
GPS RN NOTES: INSOMNIA TO C/O UNABLE TO SLEEP. PER PT WANTS SLEEPING PILL. OFFERED AMBIEN 10MG PO PRN ORDERED. PT AGREED AND TOLERATED MEDICATION WELL. CONTINUE TO MONITOR.
[2019-12-10] MEDS: LORAZEPAM 0.5 MG TABLET PO PRN ×2 (05:02→16:54)
--- NOTE | 2019-12-10 05:05 | NUR ---
GPS RN NOTES: ANXIOUS PT C/O FEELING ANXIOUS. PER PT REQUEST ATIVAN. CHECKED PT VITALS WNL. OFFERED ATIVAN 0.5MG PO PRN ORDERED. PT AGREED AND TOLERATE MEDICATION WELL. CONTINUE TO MONITOR.
[2019-12-10 08:00] VITALS: BP 152/94
--- NOTE | 2019-12-10 08:00 | NUR ---
RN OPENING NOTE: PT RECEIVED LYING IN BED. NO ACUTE DISTRESS NOTED. A+OX2, ABLE TO MAKE NEEDS KNOWN. PT CONT TO BE PARANOID AND DELUSIONAL. PT IS DISHEVELED AND UNKEPT. PT INDEPENDENT WITH ADL'S AND AMBULATORY. PT COMPLIANT WITH MEDICATION ADMINISTRATION AND PLAN OF CARE. PT DENIES SI/HI/AH/VH AT PRESENT TIME. BED IN LOW AND LOCKED POSITION WITH SIDE RAILS UP X 2. WILL CONT TO MONITOR PT FOR BEHAVIOR AND SAFETY PER GPS PROTOCOL
--- NOTE | 2019-12-10 08:05 | NUR ---
Family Contact: ALONDRA called the pts partner, Kimberly ([phone]), and discussed that the pt is improving and discussed the possibility of the pt going to a assisted for a short period of time to continue stabilizing. It was discussed that the pt does not agree to that plan and would prefer to go home. ALONDRA stated that the pt has the right to return to her home and will once the MD states that the pt is stable.
[2019-12-10] MEDS: LEVOTHYROXINE SODIUM 100 MCG TABLET PO SCH (08:06)
[2019-12-10] MEDS: OLANZAPINE 5 MG TABLET PO SCH ×2 (08:06→16:53)
[2019-12-10] MEDS: CEPHALEXIN MONOHYDRATE 500 MG CAPSULE PO SCH ×2 (08:06→16:53)
[2019-12-10] MEDS ORDERED: OLANZAPINE 5 MG TABLET PO SCH (09:00)
[2019-12-10] MEDS ORDERED: OLANZAPINE 2.5 MG TABLET PO ONE (09:00)
[2019-12-10] MEDS: DIVALPROEX SODIUM 250 MG TABLET.DR PO SCH ×2 (09:29→21:05)
--- NOTE | 2019-12-10 15:12 | NUR ---
Group Note: SW encouraged pt to attend group therapy on 12/10/19 at 2pm discussing discharge planning. Pt is acting bizarre and is not able to make complete statements or maintain eye contact. Pt was present in the activities room and began a tangent about how she does not feel comfortable about returning to her home because there "has been a lot of there and it makes it hard to go back." Pt was not able to address legitimate concerns or discuss her discharge plan.
[2019-12-10 16:00] VITALS: BP 155/95
[2019-12-10] MEDS: ACETAMINOPHEN 325 MG TABLET PO PRN (16:53)
--- NOTE | 2019-12-10 19:15 | NUR ---
GPS RN OPENING NOTE: RECEIVED PT AWAKE, AMBULATING IN THE HALLWAY. PARTNER VISITING THE PATIENT AT THIS TIME. NO ACUTE DISTRESS NOTED. PT BREATHING EQUAL BILATERALLY AND UNLABORED. PT A+OX2, CONFUSED, DISORIENTED AT TIMES, FORGETFUL, PT HAS DISORGANIZED AND DELUSIONAL THOUGHT PROCESS. PT HAS EPISODES OF THROWING PERSONAL ITEMS IN THE TRASH, PER REPORT. PT IS PARANOID WITH OCCASIONAL AGITATION. PT DENIES SI/HI AT PRESENT TIME. PT DISHEVELED AND UNKEPT. NEEDS ASSISTANCE WITH ADL CARE AT TIMES. AMBULATORY WITH STEADY GAIT. BED IN LOW LOCKED POSITION. BED ALARM ON FOR SAFETY. CALL GONZALES CLOSE TO PT. WILL CONT TO MONITOR FOR BEHAVIOR AND SAFETY PER GPS PROTOCOL.
[2019-12-10 20:04] VITALS: BP 120/84
[2019-12-11] MEDS: LORAZEPAM 0.5 MG TABLET PO PRN ×2 (00:02→18:55)
--- NOTE | 2019-12-11 00:02 | NUR ---
GPS RN NOTE: ANXIETY PATIENT VERBALIZED THAT SHE IS FEELING ANXIOUS & RESTLESS. PATIENT REQUESTED TO GET ATIVAN, PRN ATIVAN 0.5 MG 1 TAB PO GIVEN. VITALS TAKEN 123/88, 92, 18, 98.1, 96% AT RA. NO C/O PAIN VERBALIZED AT THIS TIME. WILL CONTINUE TO MONITOR FOR SAFETY & BEHAVIOR.
[2019-12-11] MEDS: ZOLPIDEM TARTRATE 10 MG TABLET PO PRN (01:09)
--- NOTE | 2019-12-11 01:10 | NUR ---
PRN AMBIEN GIVEN PATIENT IS UNABLE TO SLEEP & GETTING RESTLESS DUE TO INSOMNIA. PT. REQUESTED TO GET SLEEPING PILL, PRN AMBIEN 10 MG 1 TAB PO GIVEN. VITALS ARE WNL. WILL CONTINUE TO MONITOR.
[2019-12-11] MEDS: LEVOTHYROXINE SODIUM 100 MCG TABLET PO SCH (07:58)
[2019-12-11 08:00] VITALS: BP 159/112
[2019-12-11] MEDS: DIVALPROEX SODIUM 250 MG TABLET.DR PO SCH ×2 (08:00→21:25)
[2019-12-11] MEDS: CEPHALEXIN MONOHYDRATE 500 MG CAPSULE PO SCH ×2 (08:00→16:21)
[2019-12-11] MEDS: OLANZAPINE 5 MG TABLET PO SCH ×2 (08:00→16:21)
--- NOTE | 2019-12-11 08:25 | NUR ---
RN OPENING NOTE: RECEIVED PT SITTING IN ROOM. NO ACUTE DISTRESS NOTED. VS WITH BP ELEVATED AT 159/112. LISINOPRIL NOT ORDERED DUE TO KIDNEY FUNCTION. PT A+OX2. PT IS CALM AND COOPERATIVE WITH CARE. + PARANOIA. PT STATES CARLOS ENRIQUE CEJA CALLED HER. PT WITH POOR JUDGEMENT AND INSIGHT. GOOD SHORT AND 911 OPERATOR MEMORY. PT IS DISHEVELED AND INDEPENDENT WITH ADLS. PT AMBULATORY AND VISIBLE ON THE UNIT. PT COMPLIANT WITH MEDICATION ADMINISTRATION AND PLAN OF CARE. PT DENIES SI/HI/AH/VH AT PRESENT TIME. WILL CONT TO MONITOR PT FOR BEHAVIOR AND SAFETY PER GPS PROTOCOL
--- NOTE | 2019-12-11 15:20 | NUR ---
GROUP NOTE: Pt was present in group discussing the topic of "insight into mental illness." S: "I don't like being on Zyprexa it makes me feel droopy, but I know it's helped me and now I'm better. Everyone keeps telling me I was in really bad shape when I came in and I don't even remember but I know I was confused and very psychotic. I am feeling much better now that I'm not on Abilify." O: Pt was more alert and coherent and was able to have a meaningful conversation. Pt maintained appropriate eye contact and was respectful of others. A: Pt has gained awareness of what negative effects her medication non-compliance can cause and has expressed intense feelings related to her non-compliance to medications. P: SW will continue to encourage medication compliance and encourage group milieu.
[2019-12-11 16:00] VITALS: BP 112/69
--- NOTE | 2019-12-11 18:55 | NUR ---
RN NOTE: PT C/O ANXIETY. REQUESTING ATIVAN. ATIVAN 0.5 MG PO PRN GIVEN.
[2019-12-11] MEDS: ACETAMINOPHEN 325 MG TABLET PO PRN (19:38)
--- NOTE | 2019-12-11 19:38 | NUR ---
rn gps notes patient complaint of pain to right shoulder states 04/11 requested for tylenol. prn tylenol given as ordered, will continue to monitor for effectiveness.
[2019-12-11 20:33] VITALS: BP 98/49
[2019-12-11] MEDS: TEMAZEPAM 15 MG CAPSULE PO PRN (21:25)
--- NOTE | 2019-12-11 21:27 | NUR ---
RN GPS NOTES PATIENT STATES " SHE WOULD LIKE TO TRY TO SLEEP" REQUESTED FOR SLEEP AID. RESTORIL PRN OFFERED PATIENT AGREED AND MEDICATION GIVEN WILL CONTINUE TO MONITOR FOR EFFECTIVENESS.
[2019-12-12 08:00] VITALS: BP 143/73
[2019-12-12 08:23] LABS: BASOPHILS % (AUTO) 0.8 % (0.0-2.0); EOSINOPHILS % (AUTO) 2.1 % (0.0-6.0); HEMATOCRIT 32 % (33-45); HEMOGLOBIN 10.9 g/dL (11.5-14.8); LYMPHOCYTES # (AUTO) 1.3 /CMM (0.8-4.8); LYMPHOCYTES % (AUTO) 28.4 % (20.0-44.0); MEAN CORPUSCULAR HGB CONC 34 g/dl (31.0-36.0); MEAN CORPUSCULAR VOLUME 90 fL (82-100); MONOCYTES # (AUTO) 0.5 /CMM (0.1-1.30); MONOCYTES % (AUTO) 10.7 % (2.0-12.0); NEUTROPHILS # (AUTO) 2.7 /CMM (1.8-8.9); PLATELET COUNT (AUTO) 239 /CMM (150-450); WHITE BLOOD COUNT (AUTO) 4.6 K/uL (4.3-11.0)
[2019-12-12] MEDS: OLANZAPINE 5 MG TABLET PO SCH ×2 (08:50→17:14)
[2019-12-12] MEDS: CEPHALEXIN MONOHYDRATE 500 MG CAPSULE PO SCH ×2 (08:50→17:13)
[2019-12-12] MEDS: DIVALPROEX SODIUM 250 MG TABLET.DR PO SCH ×2 (08:50→17:13)
[2019-12-12] MEDS: LEVOTHYROXINE SODIUM 100 MCG TABLET PO SCH (08:50)
[2019-12-12 08:58] LABS: ALBUMIN 3.3 g/dL (3.4-5.0); BILIRUBIN,TOTAL 0.2 mg/dL (0.2-1.0); CALCIUM, SERUM 8.9 mg/dL (8.5-10.1); CREATININE 1.1 mg/dL (0.6-1.3); MAGNESIUM 2.1 mg/dL (1.8-2.4); POTASSIUM 4.3 mmol/L (3.5-5.1); TOTAL PROTEIN, SERUM 6.7 g/dL (6.4-8.2)
--- NOTE | 2019-12-12 15:39 | NUR ---
Group Note: Pt was present in group on 12/12/19 at 2pm discussing the topic of decision making. S: "I am going to make the decision to go back home to my partner once I am discharged from the hospital but I am also making the decision to stay on my medication regimen no matter what because without my medications I become manic." O: Pt appeared to be in a euthymic mood and presented with a calm affect. Pt was more alert and coherent and was able to have a meaningful conversation. Pt maintained appropriate eye contact and was respectful of others. A: Pt understood the importance of taking the medications that are prescribed to her. Pt stated that she is choosing to be compliant with her treatment while being in the hospital and will continue that when she gets discharged. P: SW will continue to encourage medication compliance and encourage group milieu.
[2019-12-12 16:00] VITALS: BP 152/85
[2019-12-12 20:00] VITALS: BP 141/54
[2019-12-12] MEDS: TEMAZEPAM 15 MG CAPSULE PO PRN (22:26)
--- NOTE | 2019-12-12 22:27 | NUR ---
GPS RN NOTES: INSOMNIA PT C/O UNABLE TO SLEEP. PT ASKED FOR SLEEPING MEDICATION. OFFERED RESTORIL 15 MG PO PRN ORDERED. PT AGREED AND TOLERATED MEDICATION WELL. CONTINUE TO MONITOR
[2019-12-12 22:46] VITALS: BP 120/71
[2019-12-12] MEDS: ACETAMINOPHEN 325 MG TABLET PO PRN (22:48)
--- NOTE | 2019-12-12 22:49 | NUR ---
GPS RN NOTES: C/O OF BACK PAIN PT C/O OF LOWER BACK PAIN 3 OUT OF 10 SCALE. VITALS CHECKED WNL. PT ASKED FOR TYLENOL OFFERED TYLENOL 650 MG PO PRN ORDERED. PT AGREED AND TOLERATED MEDICATION WELL. CONTINUE TO MONITOR
[2019-12-13] MEDS: LORAZEPAM 0.5 MG TABLET PO PRN ×2 (01:03→14:24)
--- NOTE | 2019-12-13 01:06 | NUR ---
GPS RN NOTES: C/O OF ANXIOUS PT C/O OF FEELING ANXIOUS. PT STATED, "I FEEL NERVOUS." CHECKED PT VITALS WNL. BREATHING EVEN AND UNLABORED. NO S/S OF RESP DISTRESS. NO SOB. OFFERED ATIVAN 0.5MG PO PRN ORDERED. PT AGREED AND TOLERATED MEDICATION WELL. CONTINUE TO MONITOR.
[2019-12-13 06:25] LABS: BASOPHILS % (AUTO) 0.5 % (0.0-2.0); EOSINOPHILS % (AUTO) 2.8 % (0.0-6.0); HEMATOCRIT 30 % (33-45); HEMOGLOBIN 10.3 g/dL (11.5-14.8); LYMPHOCYTES # (AUTO) 1.3 /CMM (0.8-4.8); MEAN CORPUSCULAR HGB CONC 34 g/dl (31.0-36.0); MEAN CORPUSCULAR VOLUME 90 fL (82-100); MONOCYTES # (AUTO) 0.6 /CMM (0.1-1.30); NEUTROPHILS # (AUTO) 2.3 /CMM (1.8-8.9); NEUTROPHILS % (AUTO) 52.7 % (43.0-81.0); PLATELET COUNT (AUTO) 216 /CMM (150-450); RED BLOOD CELL COUNT(AUTO) 3.38 MIL/uL (4.0-5.2); WHITE BLOOD COUNT (AUTO) 4.3 K/uL (4.3-11.0)
[2019-12-13 06:55] LABS: CALCIUM, SERUM 9.2 mg/dL (8.5-10.1); CREATININE 0.9 mg/dL (0.6-1.3); MAGNESIUM 2.6 mg/dL (1.8-2.4); PHOSPHORUS 4.6 mg/dL (2.5-4.9); POTASSIUM 4.1 mmol/L (3.5-5.1)
[2019-12-13 08:00] VITALS: BP 132/78
[2019-12-13] MEDS: DIVALPROEX SODIUM 250 MG TABLET.DR PO SCH ×3 (08:30→21:46)
[2019-12-13] MEDS: OLANZAPINE 5 MG TABLET PO SCH ×2 (08:30→16:11)
[2019-12-13] MEDS: LEVOTHYROXINE SODIUM 100 MCG TABLET PO SCH (08:31)
[2019-12-13] MEDS: CEPHALEXIN MONOHYDRATE 500 MG CAPSULE PO SCH (08:31)
--- NOTE | 2019-12-13 14:24 | NUR ---
GPS/RN-NOTES PATIENT STATED" I NEED ATIVAN FOR MY ANXIETY". ATIVAN 0.5MG P.O GIVEN PRN ORDER. WILL CONT. MONITORING FOR SAFETY AND BEHAVIOR.
--- NOTE | 2019-12-13 15:20 | NUR ---
GPS/RN-NOTES PATIENT WATCHING TV IN THE DAY ROOM,CALM NO ACUTE DISTRESS NOTED.
[2019-12-13 16:00] VITALS: BP 128/89
[2019-12-13] MEDS: ACETAMINOPHEN 325 MG TABLET PO PRN (16:11)
--- NOTE | 2019-12-13 16:11 | NUR ---
GPS/RN-NOTES PATIENT REQUESTING TYLENOL FOR RIGHT SHOULDER PAIN. TYLENOL 650MG P.O GIVEN PRN ORDER.
--- NOTE | 2019-12-13 17:20 | NUR ---
GPS/RN-NOTES PATIENT LAYING IN BED CALM NO ACUTE DISTRESS NOTED.STATED" TYLENOL HELPS MY SHOULDER".
[2019-12-13 20:00] VITALS: BP 136/74
[2019-12-13] MEDS: TEMAZEPAM 15 MG CAPSULE PO PRN (21:49)
[2019-12-14] MEDS: ACETAMINOPHEN 325 MG TABLET PO PRN ×2 (05:17→13:43)
[2019-12-14] MEDS: LEVOTHYROXINE SODIUM 100 MCG TABLET PO SCH (07:38)
[2019-12-14 08:00] VITALS: BP 149/96
[2019-12-14] MEDS: OLANZAPINE 5 MG TABLET PO SCH ×2 (08:06→16:15)
[2019-12-14] MEDS: DIVALPROEX SODIUM 250 MG TABLET.DR PO SCH (08:07)
--- NOTE | 2019-12-14 08:07 | NUR ---
RN NOTES PT REFUSED DEPAKOTE THIS MORNING STATED THAT IT MAKES HER FEELS WEIRD AND DEPRESS EVERY TIME SHE TAKES IT. WILL CONTINUE TO MONITOR
--- NOTE | 2019-12-14 09:57 | NUR ---
Dr. Chávez as the medical claims specialist of the unit gave an order for denial of right to do room search to look for the missing shower head with the hose. Staffs made a thorough search and the thing that we are looking is not in the room.
--- NOTE | 2019-12-14 13:47 | NUR ---
RN NOTES PT C/O OF ACHING LOWER BACK AND ASKED FOR TYLENOL. PRN TYLENOL 650MG PO GIVEN AT 1343. WILL CONTINUE TO MONITOR
[2019-12-14] MEDS: LORAZEPAM 0.5 MG TABLET PO PRN (14:23)
--- NOTE | 2019-12-14 14:27 | NUR ---
RN NOTES PT NOTED ANXIOUS, PRN ATIVAN 0.5MG GIVEN AT 1423. WILL CONTINUE TO MONITOR
--- NOTE | 2019-12-14 15:10 | NUR ---
Family Contact: ALONDRA called the pts partner, Kimberly ([phone]), and informed her that the pt will be discharged on Tuesday.
[2019-12-14 15:59] VITALS: BP 130/93
[2019-12-14 20:42] VITALS: BP 148/96
[2019-12-14] MEDS: TEMAZEPAM 15 MG CAPSULE PO PRN (21:50)
[2019-12-15] MEDS: LORAZEPAM 0.5 MG TABLET PO PRN ×3 (00:34→22:23)
[2019-12-15 06:51] LABS: BASOPHILS % (AUTO) 0.7 % (0.0-2.0); EOSINOPHILS % (AUTO) 2.4 % (0.0-6.0); HEMATOCRIT 30 % (33-45); LYMPHOCYTES # (AUTO) 1.2 /CMM (0.8-4.8); LYMPHOCYTES % (AUTO) 29.8 % (20.0-44.0); MEAN CORPUSCULAR HGB CONC 34 g/dl (31.0-36.0); MEAN CORPUSCULAR VOLUME 89 fL (82-100); MONOCYTES # (AUTO) 0.6 /CMM (0.1-1.30); MONOCYTES % (AUTO) 14.7 % (2.0-12.0); NEUTROPHILS % (AUTO) 52.4 % (43.0-81.0); PLATELET COUNT (AUTO) 238 /CMM (150-450); RED BLOOD CELL COUNT(AUTO) 3.31 MIL/uL (4.0-5.2); WHITE BLOOD COUNT (AUTO) 3.9 K/uL (4.3-11.0)
[2019-12-15 07:19] LABS: CALCIUM, SERUM 9.2 mg/dL (8.5-10.1); CREATININE 0.8 mg/dL (0.6-1.3); POTASSIUM 4.1 mmol/L (3.5-5.1)
[2019-12-15 08:00] VITALS: BP 138/82
[2019-12-15] MEDS: OLANZAPINE 5 MG TABLET PO SCH ×2 (09:08→17:57)
[2019-12-15] MEDS: LEVOTHYROXINE SODIUM 100 MCG TABLET PO SCH (09:08)
[2019-12-15] MEDS: ACETAMINOPHEN 325 MG TABLET PO PRN ×2 (09:16→14:55)
--- NOTE | 2019-12-15 09:16 | NUR ---
MEDICATED FOR BACK AND RT. SHOULDER PAIN WITH TYLENOL 650 MG PO.
--- NOTE | 2019-12-15 14:55 | NUR ---
MED. FOR RT. SHOULDER PAIN WITH TYLENOL 650 MG PO.
[2019-12-15 16:00] VITALS: BP 113/70
--- NOTE | 2019-12-15 19:54 | NUR ---
GPS/RN OPENING NOTES RECEIVED PATIENT RESTING IN BED, ABLE TO RESPOND, RESPIRATIONS EVEN AND UNLABORED. BED LOCKED. TO MONITOR FOR ANY CHANGES. RECEIVED REPORT FROM AM RN FOR DURGA.
[2019-12-15 20:00] VITALS: BP 135/87
[2019-12-15 20:53] VITALS: BP 135/87
[2019-12-15] MEDS: TEMAZEPAM 15 MG CAPSULE PO PRN (21:51)
--- NOTE | 2019-12-15 22:00 | NUR ---
GPS/RN NOTES PATIENT REQUESTED FOR SLEEP MEDICATION WITH NEEDED MEDICATION RESTORIL 15 MG PO FOR BED TIME. TO MONITOR SLEEP.
--- NOTE | 2019-12-15 22:25 | NUR ---
GPS/RN NOTES ATIVAN REQUESTED NEEDED WITH ORDER OF 0.5 MG PO TABLET GIVEN. TO MONITOR .
--- NOTE | 2019-12-16 01:41 | NUR ---
GPS/RN NOTES PATIENT WITH PAIN NOT RELIEVE WITH WARM COMPRESS AND REFUSE TYLENOL REPORTED DOES NOT WORK, UNABLE TO SLEEP WITH PAIN, MD [place] CONTACTED AND ORDERED FOR MOTRIN 600 MG PO EVERY 6 HOURS PRN. ORDERED CARRIED OUT. WILL MONITOR.
[2019-12-16] MEDS: IBUPROFEN 600 MG TABLET PO PRN ×3 (01:55→21:37)
[2019-12-16 07:44] LABS: BASOPHILS % (AUTO) 0.4 % (0.0-2.0); EOSINOPHILS % (AUTO) 1.7 % (0.0-6.0); HEMATOCRIT 30 % (33-45); HEMOGLOBIN 10.2 g/dL (11.5-14.8); LYMPHOCYTES # (AUTO) 0.9 /CMM (0.8-4.8); LYMPHOCYTES % (AUTO) 22.5 % (20.0-44.0); MEAN CORPUSCULAR HGB CONC 34 g/dl (31.0-36.0); MEAN CORPUSCULAR VOLUME 89 fL (82-100); MONOCYTES # (AUTO) 0.6 /CMM (0.1-1.30); MONOCYTES % (AUTO) 15.1 % (2.0-12.0); NEUTROPHILS # (AUTO) 2.5 /CMM (1.8-8.9); NEUTROPHILS % (AUTO) 60.3 % (43.0-81.0); PLATELET COUNT (AUTO) 245 /CMM (150-450); RED BLOOD CELL COUNT(AUTO) 3.36 MIL/uL (4.0-5.2); WHITE BLOOD COUNT (AUTO) 4.1 K/uL (4.3-11.0)
[2019-12-16 08:00] VITALS: BP 134/90
[2019-12-16 08:00] LABS: CALCIUM, SERUM 9.2 mg/dL (8.5-10.1); CREATININE 0.8 mg/dL (0.6-1.3); MAGNESIUM 2.1 mg/dL (1.8-2.4); PHOSPHORUS 4.8 mg/dL (2.5-4.9); POTASSIUM 4.3 mmol/L (3.5-5.1)
[2019-12-16] MEDS: LEVOTHYROXINE SODIUM 100 MCG TABLET PO SCH (08:27)
[2019-12-16] MEDS: OLANZAPINE 5 MG TABLET PO SCH ×2 (08:47→16:32)
--- NOTE | 2019-12-16 10:52 | NUR ---
PT IN THE DINNING ROOM SITTING IN THE CHAIR NO S/S DISTRESS NOTED, PT DENIES SI/HI COMPLIANT WITH MEDICATIONS,AMBULATORY WITH STEADY GAIT, C/O PAIN MOTRIN GIVEN WILL CONTINUE MONITORING FOR SAFETY AND BEHAVIOR Q 15 MIN
[2019-12-16] MEDS: LORAZEPAM 0.5 MG TABLET PO PRN ×2 (12:19→21:36)
--- NOTE | 2019-12-16 12:19 | NUR ---
GPS/RN NOTES ATIVAN REQUESTED NEEDED WITH ORDER OF 0.5 MG PO TABLET GIVEN. TO MONITOR .
[2019-12-16 16:00] VITALS: BP 104/91
[2019-12-16 20:23] VITALS: BP 144/89
--- NOTE | 2019-12-16 21:38 | NUR ---
Pt c/o of anxiety. Least restrictive measures ineffective. Ativan 0.5 mg po given as ordered. C/O lower back pain 04/11. Motrin 600 mg given as ordered. Will continue to monitor.
--- NOTE | 2019-12-16 22:38 | NUR ---
Post 1 hour ativan effective. Pt calm in bed. Motrin effective. Pr 0/10.
[2019-12-16] MEDS: TEMAZEPAM 15 MG CAPSULE PO PRN (23:04)
--- NOTE | 2019-12-16 23:12 | NUR ---
Pt c/o of insomnia. Least restrictive measures ineffective. Restoril 15 mg po given as ordered. Will continue to monitor.
--- NOTE | 2019-12-17 00:15 | NUR ---
Post 1 hour Restoril Effective. Pt asleep in bed easy to arouse. Will continue to monitor.
[2019-12-17] MEDS: ACETAMINOPHEN 325 MG TABLET PO PRN (01:26)
--- NOTE | 2019-12-17 01:30 | NUR ---
Pt c/o headache 12/10. Tylenol 650 mg po given as ordered. Will continue to monitor.
--- NOTE | 2019-12-17 02:32 | NUR ---
Post 1 hour tylenol effective. AL 0/10. Will continue to monitor.
[2019-12-17] MEDS: LORAZEPAM 0.5 MG TABLET PO PRN ×2 (07:55→14:19)
[2019-12-17] MEDS: LEVOTHYROXINE SODIUM 100 MCG TABLET PO SCH (07:55)
--- NOTE | 2019-12-17 07:55 | NUR ---
RN NOTE: PT C/O INCREASING AGITATION AND ANXIETY. PT REQUESTING ATIVAN PRN. ATIVAN 0.5 MG PO PRN ADMINISTERED.
--- NOTE | 2019-12-17 07:56 | NUR ---
RN NOTE: PT C/O INCREASED ANXIETY. PT REQUESTING ATIVAN PRN. ATIVAN 0.5 MG PO PRN ADMINISTERED.
[2019-12-17 08:00] VITALS: BP 143/93
[2019-12-17] MEDS: OLANZAPINE 5 MG TABLET PO SCH (08:00)
--- NOTE | 2019-12-17 08:45 | NUR ---
RN NOTE: PT REPORTS A DECREASE IN ANXIETY AFTER ATIVAN PO PRN.
[2019-12-17] MEDS: IBUPROFEN 600 MG TABLET PO PRN (09:38)
--- NOTE | 2019-12-17 09:38 | NUR ---
RN NOTE: PT C/O 8/10 PAIN IN TIGHT SHOULDER, LOWER BACK AND LEFT KNEE. PT REQUESTING MOTRIN PRN. MOTRIN 600MG PO PRN ADMINISTERED.
--- NOTE | 2019-12-17 09:45 | NUR ---
RN-CO: DR PENNINGTON SEEN PATIENT AND ORDERED TO DISCHARGE PATIENT TODAY, NOTED.
--- NOTE | 2019-12-17 13:52 | NUR ---
Discharge Note: Pt was discharged to her home located at [address] [address]; ([phone]). Pt was discharged at 3pm. Pts , Kimberly ([phone]), picked her up. Upon discharge, the pt appears to be in a euthymic mood and presents with a calm affect. Pt appears to be alert and oriented x4 (time, place, self and situation). Pt denied both suicidal and homicidal ideation as well as auditory and visual hallucinations. Pt was referred to psychiatrist, Dr. Bernard Herman, located at [address] [facility] [id number] [address]; . Pt stated that she will call on her own time to make an appointment as she does not know her [facility] outpatient program schedule at this time. Pt will also continue to be under the care of her primer inspector, Dr. Edenilson Parr, located at [address] [address]; ; and a fax of records was sent to: ([phone]). Pt has an appointment with her primer inspector on 12/21/19 at 12pm.
--- NOTE | 2019-12-17 14:19 | NUR ---
RN NOTE: PT C/O INCREASING ANXIETY. REQUESTED PRN ATIVAN. ATIVAN 0.5 MG PO PRN GIVEN
[2019-12-17 16:00] VITALS: BP 136/86
--- NOTE | 2019-12-17 16:15 | NUR ---
CORE INSPECTOR NOTE: 64 YEAR OLD FEMALE DISCHARGED TO HOME IN STABLE CONDITION. COMPLIANT WITH MEDICATIONS, COOPERATIVE WITH TREATMENT PLANS. PATIENT DENIES SI/HI AND INSTRUCTED TO GO TO THE CLOSEST ER IF DEVELOPING SI/HI. BEHAVIOR IMPROVED, PSYCHIATRIC TREATMENT PLANS MET, MEDICAL TREATMENT PLANS DEFERRED FOR CONTINUAL MONITORING. EDUCATED PT ABOUT AFTER CARE PLAN AND COPY PROVIDED. RETURNED PERSONAL BELONGINGS TO PT. DENTURES NOT PRESENT AT DISCHARGE. PT'S PARTNER, ILDEFONSO, THREATENING TO [facility]. TELEPHONE TO ABRAHAM, AEROSPACE ENGINEER. GRIEVANCE FORM GIVEN TO PARTNER AND FILLED OUT. MEDICATIONS RECONCILED WITH DR. PENNINGTON AND DR. ARAGON. PT SIGNED DISCHARGE PAPERWORK. SKIN INTACT ON ADMIT AND DISCHARGE. PT LEFT THE UNIT AT 1615 WITH PARTNER, ILDEFONSO, VIA AMBULATION AND PERSONAL VEHICLE.
== END 2019-12-17 16:15 | disposition home or self-care (01) | DRG 885 ==
LOC: ER 09:22 → GPS 14:39
PROVIDERS: ADMIT Psychiatry & Neurology Psychiatry; ATTEND Registered Nurse
DX: F31.64 Bipolar disorder, current episode mixed, severe, with psychotic features (principal); N17.0 Acute kidney failure with tubular necrosis; G92 Toxic encephalopathy; E87.1 Hypo-osmolality and hyponatremia; E44.1 Mild protein-calorie malnutrition; M62.82 Rhabdomyolysis; E83.52 Hypercalcemia; E03.9 Hypothyroidism, unspecified; E86.0 Dehydration; E88.09 Other disorders of plasma-protein metabolism, not elsewhere classified; G89.29 Other chronic pain; I10 Essential (primary) hypertension; F41.9 Anxiety disorder, unspecified; Z91.19 Patient's noncompliance with other medical treatment and regimen; F29 Unspecified psychosis not due to a substance or known physiological condition; Z73.6 Limitation of activities due to disability; Z68.24 Body mass index [BMI] 24.0-24.9, adult; E86.1 Hypovolemia
CPT/HCPCS: 36415; 70450-TC; 76770-TC; 80048-TC; 80053-TC; 80061-TC; 80076-TC; 80164-TC; 80305; 81000-TC; 82550-TC; 82570-TC; 82962-TC; 83735-TC; 83935-TC; 83970; 84100-TC; 84155; 84155-TC; 84165; 84300-TC; 84443-TC; 84550-TC; 85025-TC; 87081-TC; 87086-TC; G0480